=== PATIENT | female | born 1950 | race Caucasian/White ===

== ENCOUNTER 2017-12-30 13:45 | Outpatient (RCR) | payer OTHER, SELFPAY ==
--- NOTE | 2017-12-26 16:02 | PT.OTN ---
Addendum entered and electronically signed by Brook Cason, PT 12/30/17 16:50: Transition note: On December 24, 2017 our therapy services consisting of Speech, Occupational, and Physical Therapy transitioned from the [employer] electronic documentation system to a new [employer] electronic documentation system.?? All documentation prior to December 24 can be found under [employer] saved data. From December 24 forward all medical record documentation will be in [email or web address]. Original Note: Current Diagnoses Flat foot [pes planus] (acquired), left foot (12/26/17) Contracture, left ankle (12/26/17) Stiffness of left ankle, not elsewhere classified (12/26/17) Other abnormalities of gait and mobility (12/26/17) Weakness (12/26/17) Physical Therapy Treatment Note PT-OP-A Visit Information Start: 12/26/17 15:43 Freq: Status: Active Protocol: Activity Type Activity Date Activity User E-Sign Co-Sign Detail Recorded Client Recorded Date Recorded By Document 12/26/17 15:44 [facility] [id number] 12/26/17 16:01 [facility] 12/26/17 15:44 Out-Patient Physical Therapy Visit Information [Visit Information] -Visit Type Treatment Note -Visit Start Time 13:45 -Visit Stop Time 14:40 -Total Visit Minutes 55 -Visit Number 4 -Number of RENEWALS MANAGER Visits 0 [Evaluation Information] -Evaluation Date 12/04/17 PT-OP-C Subjective Start: 12/26/17 15:43 Freq: Status: Active Protocol: Activity Type Activity Date Activity User E-Sign Co-Sign Detail Recorded Client Recorded Date Recorded By Document 12/26/17 15:44 [facility] [id number] 12/26/17 16:01 [facility] 12/26/17 15:44 OP-PT Subjective [Patient Comments] -Patient Comments I'm still not too fast, but I 'm getting there. My shoulder is also still problematic, but the more I move it around, the better it feels. Pt also reports that after spending most of the past week on a boat, he foot was swollen more than normal, which seems to limit her ROM. -Patient Reported Progress Improving PT-OP-Q Treatments Start: 12/26/17 15:43 Freq: Status: Active Protocol: Activity Type Activity Date Activity User E-Sign Co-Sign Detail Recorded Client Recorded Date Recorded By Document 12/26/17 15:44 [facility] [id number] 12/26/17 16:01 [facility] 12/26/17 15:44 Gym Equipment [Shuttle Recovery] Unilateral Heel Raises -Resistance 50# -Shuttle Recovery Platform Stable -Reps/Time x20 Unilateral Squats -Resistance 50# -Shuttle Recovery Platform Stable -Reps/Time x20 Therapeutic Exercises [Sitting Exercises] 3 -Sitting Exercise Name Pulleys - GH Abduction -Side bilateral 2 -Sitting Exercise Name Pulleys - GH Flexion -Side bilateral 1 -Sitting Exercise Name BAPS ROM PF/DF, In/Ev, CW/CCW -Side left -Resistance Lv 2 -Equipment Used BAPS [Standing Exercises] 2 -Standing Exercise Name T-band Extension -Side right -Resistance Lv 2 -Reps/Minutes x15 1 -Standing Exercise Name T-band Adduction -Side right -Resistance Lv 2 -Reps/Minutes x15 Manual Therapy Treatment [Soft Tissue Mobilization] 1 -Body Location Gastrosoleus Complex -Mobilization Type Other -Body Position Sitting -Comments Manual Elongation [Joint Mobilizations] 1 -Joint Talocrural Joint -Direction Anterior/ Posterior -Grade III -Body Position Sitting -Reps/Duration 10 min PT-OP-R Modalities Start: 12/26/17 15:43 Freq: Status: Active Protocol: Activity Type Activity Date Activity User E-Sign Co-Sign Detail Recorded Client Recorded Date Recorded By Document 12/26/17 15:44 [facility] [id number] 12/26/17 16:01 [facility] 12/26/17 15:44 Electric Stimulation [Electric Stimulation] Interferential Current (IFC) -Body Location Left Ankle -Duration (Minutes) 15 -Contraction Type Normal -Cycle Continuous -Patient Position Hooklying -Combined With Heat/Cold Cold Pack -Comments Cryocuff PT-OP-T Assessment and Plan Start: 12/26/17 15:43 Freq: Status: Active Protocol: Activity Type Activity Date Activity User E-Sign Co-Sign Detail Recorded Client Recorded Date Recorded By Document 12/26/17 15:44 [facility] [id number] 12/26/17 16:01 [facility] 12/26/17 15:44 Physical Therapy Assessment [Rehab Potential] -Rehabilitation Potential Good [Impairments] -Impairments Activity Tolerance Balance Edema Functional Mobility Gait Pain ROM Soft Tissue Mobility Strength [Progress Towards Goals] -Progress Towards Goals Progressing Toward Goals [Assessment Summary] -Assessment Pt progressing slowly 4 months s/p surgical correction of L Charcot foot. Edema continues to limit ROM and strength, however she has progressed to full weight- bearing as tolerated, and currently just uses her SPC for balance support. Physical Therapy Plan [Frequency and Duration] -Frequency of Treatment 2x/Week -Plan of Care Start Date 12/16/17 -Plan of Care End Date 03/09/18 [Therapeutic Interventions] -Therapeutic Interventions Aquatic Therapy Balance Training Gait Training Home Exercise Program Joint Mobilizations Manual Therapy Neuromuscular Re-education Soft Tissue Mobilization Therapeutic Activities Therapeutic Exercises -Modalities Cold Pack/Ice Massage Electric Stimulation Hot Packs Ultrasound [Next Visit Focus/Plan] -Next Visit Plan Focus on ROM and strengthening, continued gait and balance training.
--- NOTE | 2017-12-30 14:28 | PT.OTN ---
Current Diagnoses Flat foot [pes planus] (acquired), left foot (12/30/17) Contracture, left ankle (12/30/17) Stiffness of left ankle, not elsewhere classified (12/30/17) Other abnormalities of gait and mobility (12/30/17) Weakness (12/30/17) Physical Therapy Treatment Note PT-OP-A Visit Information Start: 12/26/17 15:43 Freq: Status: Active Protocol: Activity Type Activity Date Activity User E-Sign Co-Sign Detail Recorded Client Recorded Date Recorded By Document 12/30/17 14:17 [facility] [id number] 12/30/17 14:28 [facility] 12/30/17 14:17 Out-Patient Physical Therapy Visit Information [Visit Information] -Visit Type Treatment Note -Visit Start Time 13:45 -Visit Stop Time 14:30 -Total Visit Minutes 45 -Visit Number 5 -Number of PROPERTY INVESTOR Visits 0 [Evaluation Information] -Evaluation Date 12/04/17 PT-OP-C Subjective Start: 12/26/17 15:43 Freq: Status: Active Protocol: Activity Type Activity Date Activity User E-Sign Co-Sign Detail Recorded Client Recorded Date Recorded By Document 12/30/17 14:17 [facility] [id number] 12/30/17 14:28 [facility] 12/30/17 14:17 OP-PT Subjective [Patient Comments] -Patient Comments With my $40 co -pay, I'd rather just save appointments for later if I need them, and just do most of this stuff at home. Pt also notes that her swelling seems to be worsening , and she is planning on wearing compression socks to try and help. PT-OP-K Range of Motion Start: 12/26/17 15:43 Freq: Status: Active Protocol: Activity Type Activity Date Activity User E-Sign Co-Sign Detail Recorded Client Recorded Date Recorded By Document 12/30/17 14:17 [employer] [id number] 12/30/17 14:28 [facility] 12/30/17 14:17 Ankle and Foot Goniometric Range of Motion [Ankle and Foot] Measured in Degrees Left Passive -Testing Position Sitting -Dorsiflexion with Knee Flexed 8 -Plantarflexion 40 -Inversion 10 -Eversion 12 Left Active -Testing Position Sitting -Dorsiflexion with Knee Flexed 8 -Plantarflexion 28 -Inversion 8 -Eversion 4 PT-OP-M Strength Start: 12/30/17 14:16 Freq: Status: Active Protocol: Activity Type Activity Date Activity User E-Sign Co-Sign Detail Recorded Client Recorded Date Recorded By Document 12/30/17 14:17 [facility] [id number] 12/30/17 14:28 [facility] 12/30/17 14:17 Ankle/Foot Strength [Ankle and Foot Manual Muscle Testing] Left -Dorsiflexion (L4) 4- Good- -Plantarflexion (S1) 4- Good- -Inversion 4 Good -Eversion (S1) 4 Good PT-OP-Q Treatments Start: 12/26/17 15:43 Freq: Status: Active Protocol: Activity Type Activity Date Activity User E-Sign Co-Sign Detail Recorded Client Recorded Date Recorded By Document 12/30/17 14:17 [facility] [id number] 12/30/17 14:28 [facility] 12/30/17 14:17 Gym Equipment [Shuttle Recovery] Unilateral Heel Raises -Resistance 50# -Shuttle Recovery Platform Stable -Reps/Time x20 Unilateral Squats -Resistance 50# -Shuttle Recovery Platform Stable -Reps/Time x20 Therapeutic Exercises [Sitting Exercises] 3 -Sitting Exercise Name Pulleys - GH Abduction -Side bilateral 2 -Sitting Exercise Name Pulleys - GH Flexion -Side bilateral 1 -Sitting Exercise Name BAPS ROM PF/DF, In/Ev, CW/CCW -Side left -Resistance Lv 2 -Equipment Used BAPS [Standing Exercises] 3 -Standing Exercise Name Dorsiflexion on VIET -Side bilateral -Reps/Minutes x10 Manual Therapy Treatment [Soft Tissue Mobilization] 1 -Body Location Gastrosoleus Complex -Mobilization Type Other -Body Position Sitting -Comments Manual Elongation PT-OP-R Modalities Start: 12/26/17 15:43 Freq: Status: Active Protocol: Activity Type Activity Date Activity User E-Sign Co-Sign Detail Recorded Client Recorded Date Recorded By Document 12/30/17 14:17 [facility] [id number] 12/30/17 14:28 [facility] 12/30/17 14:17 Electric Stimulation [Electric Stimulation] Interferential Current (IFC) -Body Location Left Ankle -Duration (Minutes) 15 -Contraction Type Normal -Cycle Continuous -Patient Position Hooklying -Combined With Heat/Cold Cold Pack -Comments Cryocuff PT-OP-T Assessment and Plan Start: 12/26/17 15:43 Freq: Status: Active Protocol: Activity Type Activity Date Activity User E-Sign Co-Sign Detail Recorded Client Recorded Date Recorded By Document 12/30/17 14:17 [facility] [id number] 12/30/17 14:28 [facility] 12/30/17 14:17 Physical Therapy Assessment [Rehab Potential] -Rehabilitation Potential Good [Impairments] -Impairments Activity Tolerance Balance Edema Functional Mobility Gait Pain ROM Soft Tissue Mobility Strength [Progress Towards Goals] -Progress Towards Goals Progressing Toward Goals [Assessment Summary] -Assessment Pt requesting discharge at this time due to her high co- pay and 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 Pt informed that she will require a new referral in order to return . Physical Therapy Plan [Frequency and Duration] -Frequency of Treatment 2x/Week -Plan of Care Start Date 12/16/17 -Plan of Care End Date 03/09/18 [Therapeutic Interventions] -Therapeutic Interventions Aquatic Therapy Balance Training Gait Training Home Exercise Program Joint Mobilizations Manual Therapy Neuromuscular Re-education Soft Tissue Mobilization Therapeutic Activities Therapeutic Exercises -Modalities Cold Pack/Ice Massage Electric Stimulation Hot Packs Ultrasound [Discharge Physical Therapy] -Discharge Reasons Patient Request -Discharge Comments Pt continued to display edema, decreased ROM, and weakness following surgical repair of L Charcot foot. Pt would likely benefit from continued therapy, however she feels discharge would be best at this time. [Next Visit Focus/Plan] -Next Visit Plan Discharge from skilled PT
== END 2018-01-14 13:15 ==
LOC: PHYS 13:45
PROVIDERS: Family Provider Internal Medicine; PCP Internal Medicine; Visit Provider Orthopaedic Surgery Foot and Ankle Surgery
DX: M21.42 Flat foot [pes planus] (acquired), left foot (principal); R26.89 Other abnormalities of gait and mobility; R53.1 Weakness; M25.672 Stiffness of left ankle, not elsewhere classified; M24.572 Contracture, left ankle
CPT/HCPCS: 97014; 97110; 97140; G0283

== ENCOUNTER → 2018-07-15 10:15 | Outpatient (CLI) | payer OTHER, SELFPAY ==
[2018-07-15 10:44] LABS: Add Manual Diff / Slide Review NO; Basophils Percent Auto 0.5 % (0-2); Eosinophils Percent Auto 1.1 % (2-4); Hematocrit 47.2 % (36-46); Hemoglobin 15.7 g/dL (12.0-16.0); Lymphocytes Percent Auto 17.1 % (25-40); Mean Corpuscular HGB Conc 33.2 % (30-36); Mean Corpuscular Hemoglobin 31.1 PG (26-34); Mean Corpuscular Volume 93.5 fL (80-100); Monocytes Percent Auto 7.3 % (3-14); Neutrophils Absolute Auto 4900 /uL (3000-5900); Platelet Count 259 X10^3/uL (150-400); Red Blood Cell Count 5.05 X10^6/uL (4.0-5.2); Red Cell Distribution Width 14.2 % (11.6-14.8); White Blood Cell Count 6.7 X10^3/uL (4.5-11.0)
[2018-07-15 11:00] LABS: Carbon Dioxide 29 mmol/L (22-32); Chloride 99 mmol/L (98-107); HEMOLYSIS 19 (0-50); Sodium 141 mmol/L (137-145)
== END ==
PROVIDERS: PCP Physician Assistant; Visit Provider Podiatrist
DX: Z01.818 Encounter for other preprocedural examination (principal); Z01.812 Encounter for preprocedural laboratory examination
CPT/HCPCS: 36415; 80051; 85025; 93005

== ENCOUNTER → 2019-07-17 11:45 | Outpatient (CLI) | payer MEDICARE, SELFPAY ==
--- NOTE | 2019-07-17 11:48 | DI.RAD.S_ITS ---
PROCEDURE: XR FOREARM RT 2V INDICATIONS: r/o fracture TECHNIQUE: 2 views of the forearm were acquired. COMPARISON: None. FINDINGS: Bones: There is subtle irregularity and sclerosis involving the distal radial shaft suggestive of a nondisplaced distal radial fracture. Moderate osteophytic changes along radial aspect of left wrist are seen. No dislocation. Soft tissues: No suspicious soft tissue calcifications or masses. IMPRESSION: Finding is consistent with a subtle nondisplaced transverse fracture through distal radius. Wrist joint osteoarthritis. Dictated by: Jarod Mejias M.D. on 07/17/2019 at 12:06 Approved by: Jarod Mejias M.D. on 07/17/2019 at 12:12
--- NOTE | 2019-07-17 11:48 | DI.RAD.S_ITS ---
PROCEDURE: XR WRIST LT MIN 3V INDICATIONS: r/o fracture TECHNIQUE: 3 views of the wrist were acquired. COMPARISON: None. FINDINGS: Bones: Minimally impacted distal radial fracture is seen. Osteoarthritic changes are noted along radial aspect of left wrist. No suspicious bony lesions. Scaphoid view: Scaphoid is grossly intact. Soft tissues: No suspicious soft tissue calcifications. IMPRESSION: Minimally impacted distal radial fracture. 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 Dictated by: Jarod Mejias M.D. on 07/17/2019 at 12:12 Approved by: Jarod Mejias M.D. on 07/17/2019 at 12:19
== END ==
PROVIDERS: Family Provider Internal Medicine; PCP Physician Assistant; Visit Provider Physician Assistant
DX: S69.92XA Unspecified injury of left wrist, hand and finger(s), initial encounter (principal); M19.031 Primary osteoarthritis, right wrist; M18.11 Unilateral primary osteoarthritis of first carpometacarpal joint, right hand; X58.XXXA Exposure to other specified factors, initial encounter
CPT/HCPCS: 73090; 73110

== ENCOUNTER → 2019-09-24 18:35 | Outpatient (ROUT) | payer MEDICARE, SELFPAY ==
[2019-09-24 18:43] LABS: Add Manual Diff / Slide Review NO; Basophils Absolute Auto 100 /uL (0-100); Basophils Percent Auto 0.8 % (0-2); Eosinophils Absolute Auto 100 /uL (0-450); Eosinophils Percent Auto 1.8 % (2-4); Hemoglobin 15.3 g/dL (12.0-16.0); Lymphocytes Absolute Auto 1300 /uL (1100-4500); Lymphocytes Percent Auto 20.6 % (25-40); Mean Corpuscular HGB Conc 33.4 % (30-36); Mean Corpuscular Hemoglobin 31.3 PG (26-34); Mean Corpuscular Volume 93.8 fL (80-100); Monocytes Absolute Auto 500 /uL (0-900); Monocytes Percent Auto 8.3 % (3-14); Neutrophils Absolute Auto 4400 /uL (1500-7000); Neutrophils Percent Auto 68.5 % (50-75); Platelet Count 238 X10^3/uL (150-400); White Blood Cell Count 6.4 X10^3/uL (4.5-11.0)
[2019-09-24 19:01] LABS: Alanine Aminotransferase 26 IU/L (<35); Albumin Globulin Ratio 1.1 (1.0-2.8); Alkaline Phosphatase 80 U/L (38-126); Aspartate Aminotransferase 32 IU/L (14-36); BUN Creatinine Ratio 19.2 (6-22); Bilirubin Total 0.6 mg/dL (0.2-1.3); Blood Urea Nitrogen 23 mg/dL (7-17); Calcium 9.5 mg/dL (8.4-10.2); Carbon Dioxide 30 mmol/L (22-32); Chloride 100 mmol/L (98-107); Cholesterol 208 mg/dL (140-199); Estimated Glomerular Filt Rate 44.8 mL/min (>60); Globulin 3.5 g/dL (1.7-4.1); Glucose 111 mg/dL (80-110); HDL Cholesterol 61 mg/dL (40-60); HEMOLYSIS 20 (0-50); LDL Cholesterol Calculated 100 mg/dL (<100); Magnesium 1.8 mg/dL (1.6-2.3); Potassium 4.8 mmol/L (3.4-5.1); Sodium 137 mmol/L (137-145); Total Protein 7.5 g/dL (6.3-8.2); Triglycerides 233 mg/dL (35-150)
[2019-09-24 19:30] LABS: TSH w/ Reflex to FT4 2.36 uIU/mL (0.47-4.68)
== END ==
PROVIDERS: Family Provider Internal Medicine; PCP Physician Assistant; Visit Provider Physician Assistant
DX: M10.9 Gout, unspecified (principal); I10 Essential (primary) hypertension; E03.9 Hypothyroidism, unspecified; E78.2 Mixed hyperlipidemia
CPT/HCPCS: 80053; 80061; 83735; 84443; 85025

== ENCOUNTER → 2020-11-17 18:26 | Outpatient (ROUT) | payer OTHER, SELFPAY ==
[2020-11-17 18:44] LABS: Add Manual Diff / Slide Review NO; Alanine Aminotransferase 25 IU/L (<35); Albumin 3.9 g/dL (3.5-5.0); Albumin Globulin Ratio 1.1 (1.0-2.8); Alkaline Phosphatase 77 U/L (38-126); Aspartate Aminotransferase 33 IU/L (14-36); BUN Creatinine Ratio 13.6 (6-22); Basophils Absolute Auto 100 /uL (0-100); Basophils Percent Auto 0.7 % (0-2); Bilirubin Total 0.6 mg/dL (0.2-1.3); Blood Urea Nitrogen 17 mg/dL (7-17); Calcium 9.5 mg/dL (8.4-10.2); Carbon Dioxide 23 mmol/L (22-32); Chloride 104 mmol/L (98-107); Cholesterol 170 mg/dL (140-199); Eosinophils Absolute Auto 200 /uL (0-450); Eosinophils Percent Auto 2.1 % (2-4); Estimated Glomerular Filt Rate 42.6 mL/min (>60); Globulin 3.7 g/dL (1.7-4.1); Glucose 97 mg/dL (80-110); HDL Cholesterol 56 mg/dL (40-60); Hematocrit 47.9 % (36-46); Hemoglobin 15.7 g/dL (12.0-16.0); LDL Cholesterol Calculated 78 mg/dL (<100); Lymphocytes Absolute Auto 1800 /uL (1100-4500); Lymphocytes Percent Auto 24.6 % (25-40); Magnesium 1.7 mg/dL (1.6-2.3); Mean Corpuscular HGB Conc 32.8 % (30-36); Mean Corpuscular Hemoglobin 30.9 PG (26-34); Mean Corpuscular Volume 94.4 fL (80-100); Monocytes Absolute Auto 700 /uL (0-900); Monocytes Percent Auto 9.3 % (3-14); Neutrophils Absolute Auto 4600 /uL (1500-7000); Neutrophils Percent Auto 63.3 % (50-75); Platelet Count 248 X10^3/uL (150-400); Red Blood Cell Count 5.07 X10^6/uL (4.0-5.2); Red Cell Distribution Width 14.9 % (11.6-14.8); Sodium 136 mmol/L (137-145); Total Protein 7.6 g/dL (6.3-8.2); Triglycerides 182 mg/dL (35-150); Uric Acid 8.6 mg/dL (2.5-6.2); White Blood Cell Count 7.3 X10^3/uL (4.5-11.0)
[2020-11-17 19:05] LABS: HEMOLYSIS 51 (0-50)
[2020-11-17 19:13] LABS: TSH w/ Reflex to FT4 3.16 uIU/mL (0.47-4.68)
== END ==
PROVIDERS: Family Provider Internal Medicine; PCP Physician Assistant; Visit Provider Physician Assistant
DX: M10.9 Gout, unspecified (principal); I10 Essential (primary) hypertension; E78.2 Mixed hyperlipidemia; E03.9 Hypothyroidism, unspecified
CPT/HCPCS: 80053; 80061; 83735; 84443; 84550; 85025

== ENCOUNTER → 2021-09-22 08:26 | Outpatient (CLI) | payer OTHER, SELFPAY ==
--- NOTE | 2021-09-22 | DI.RAD.S_ITS ---
PROCEDURE: XR CHEST 2V INDICATIONS: SHORTNESS OF BREATH TECHNIQUE: 2 views of the chest were acquired. COMPARISON: None. FINDINGS: Surgical changes and devices: None. Lungs and pleura: Abnormal mixed interstitial and airspace opacity in the right lung with a masslike appearance of the right hilum.. There also appears to be some right pleural thickening apically. There mildly increased interstitial markings in the left lung. No visible pleural effusion or findings of pneumothorax. Mediastinum: Mediastinal contours are normal. Heart size is normal. Bones and chest wall: No suspicious bony abnormalities. Soft tissues appear unremarkable. IMPRESSION: Abnormal airspace and interstitial opacities in the right lung with suspected pleural thickening and right hilar mass. CT chest with IV contrast is recommended. Dictated by: Sam Carlson M.D. on 09/22/2021 at 9:56 Approved by: Sam Carlson M.D. on 09/22/2021 at 9:57
--- NOTE | 2021-09-22 08:42 | DI.ECHO.S_ITS ---
:Name: DELILAH DIMAS Study Date: 09/22/2021 Height: 69 in : :[facility] ReadingLocation: Weight: 270 lb : : Gender: Female BSA: 2.3 m2 : :: 1950 Age: 71 yrs BP: 166/120 mmHg: :Reason For Study: HERRERA : :Ordering Physician: Dr. Simmons : :Aidan Performed By: Rubio Levin : :Referring: AMARIS ZARAGOZA : + + Interpretation Summary The study quality was technically difficult. The left ventricle is normal in size and wall thickness. The ejection fraction is estimated to be 50-55%. The right ventricle is moderately dilated. Right ventricular systolic function is mildly to moderately reduced. Paradoxical septal motion is consistent with right ventricular volume overload. The right ventricular systolic pressure is estimated to be at least 62 mmHg based on an estimated right atrial pressure of 8 mm Hg. suggesting severe pulmonary hypertension. Ascending aorta mildly dilated at 4.1 cm. No prior studies available for comparison. Procedure: A two-dimensional transthoracic echocardiogram with color flow and Doppler was performed. The study quality was technically difficult. The apical views were difficult to obtain and are suboptimal in quality. There is no prior echocardiogram noted for this patient. The heart rate ranged between 94 - 105 bpm during the study. Left Ventricle: The left ventricle is normal in size and wall thickness. Significant beat - to - beat variation of EF but appears grossly normal / low normal. The ejection fraction is estimated to be 50-55%. Paradoxical septal motion is consistent with right ventricular volume overload. Diastolic function could not be accurately assessed due to unobtainable data. Right Ventricle: A moderator band is seen in the right ventricle. The right ventricle is moderately dilated. Right ventricular systolic function is mildly reduced. Atria: The left atrial size is normal. The right atrium is severely dilated. There is no Doppler evidence for an interatrial shunt. Mitral Valve: The mitral valve is normal. There is trace mitral regurgitation. Aortic Valve: The aortic valve is trileaflet. The aortic valve opens well. There is trace aortic regurgitation. Tricuspid Valve: The tricuspid valve is normal. There is moderate tricuspid regurgitation. The right ventricular systolic pressure is estimated to be at least 62 mmHg based on an estimated right atrial pressure of 8 mm Hg. Pulmonic Valve: The pulmonic valve leaflets are thin and pliable; valve motion is normal. There is trace pulmonic regurgitation. Great Vessels: Aortic root mildly dilated at 3.9 cm. Ascending aorta mildly dilated at 4.1 cm. The aortic arch is normal in size. The IVC is dilated (diameter is greater than 2.1 cm) yet it collapses greater than 50% with a sniff. This suggests a right atrial pressure of 8 mm Hg. Pericardium/ Pleura There is no pericardial effusion. There is an anterior echo-free space consistent with a fat pad. There is no pleural effusion. MMode/2D Measurements & Calculations LVIDd: 3.7 cm LVOT diam: 2.4 cm LVIDs: 1.7 cm Ao root diam: 3.9 cm FS: 53.5 % asc Aorta Diam: 4.1 cm IVSd: 0.95 cm Ao Arch Diam (distal): 3.1 cm LVPWd: 1.1 cm LV christine. diameter/BSA (cm/m^2): 1.6 LV sys. diameter/BSA (cm/m^2): 0.73 LA A2 area: 24.0 cm2 RA long axis: 7.2 cm LA A4 area: 21.5 cm2 RA area: 33.9 cm2 LA length (vol): 7.6 cm RA vol: 135.8 ml LA vol: 57.3 ml RA : 57.9 ml/m2 LA vol index: 24.4 ml/m2 IVC diam: 2.2 cm TAPSE: 1.6 cm Doppler Measurements & Calculations Ao V2 max: 115.5 cm/sec LVOT Max Charly: 118.5 cm/sec Ao V2 mean: 84.7 cm/sec LV V1 max P.7 mmHg Ao max P.5 mmHg LV V1 VTI: 19.1 cm Ao mean P.1 mmHg DAQUAN(I,D): 4.7 cm2 Ao V2 VTI: 18.8 cm DAQUAN(V,D): 4.7 cm2 sev ratio: 1.0 DAQUAN indexed to BSA (cm^2/m^2): 2.0 TR max charly: 341.0 cm/sec SV(LVOT): 87.9 ml TR max P.9 mmHg Reading Physician:RENNY
== END ==
PROVIDERS: Family Provider Internal Medicine; PCP Physician Assistant; Referring Provider Internal Medicine; Visit Provider Internal Medicine
DX: I07.1 Rheumatic tricuspid insufficiency (principal); I77.810 Thoracic aortic ectasia; R06.02 Shortness of breath
CPT/HCPCS: 71046; 93306

== ENCOUNTER 2021-09-25 11:35 | Inpatient (IN) | payer OTHER, SELFPAY ==
[2021-09-25] VITALS (56 sets, daily range): BP systolic 116–157; BP diastolic 65–110; PULSE 72–109; RESP 22–78; TEMP 36.2–36.6; O2SAT 88–99; BMI 34.9
--- NOTE | 2021-09-25 12:03 | ED_ITS ---
HPI - General Adult General Chief complaint: Shortness of Breath/Dyspnea Stated complaint: CHF/Hypoxia/Not Eating or Drinking/Trouble Walking Time Seen by Provider: 09/25/21 12:03 Source: patient and family Mode of arrival: Wheelchair History of Present Illness HPI narrative: 71-year-old woman with a history of congestive heart failure recently diagnosed on vaccinated against COVID presents with severe dyspnea, tachypnea, 3 days of lethargy, no appetite minimal p.o. intake, mild cough denies fevers denies headache taste or smell changes. feels that she is confused. She denies chest pain or palpitations. Related Data Home Medications Medication Instructions Recorded Confirmed furosemide 40 mg tablet 40 mg PO DAILY 09/25/21 09/25/21 gabapentin 600 mg tablet 600 mg PO TID 09/25/21 09/25/21 levothyroxine 100 mcg tablet 100 mcg PO DAILY 09/25/21 09/25/21 losartan 100 mg tablet 100 mg PO DAILY 09/25/21 09/25/21 potassium chloride 20 mEq 20 meq PO DAILY 09/25/21 09/25/21 tablet,extended release(part/cryst) sertraline 50 mg tablet 100 mg PO DAILY 09/25/21 09/25/21 tramadol 50 mg tablet 50 mg PO QID PRN 09/25/21 09/25/21 Allergies Allergy/AdvReac Type Severity Reaction Status Date / Time No Known Drug Allergies Allergy Unverified 07/17/19 12:53 Review of Systems Review of Systems Narrative: Remainder of complete review of systems is otherwise unremarkable except for that included in the HPI. Patient History Medical History (Updated 09/25/21 @ 15:47 by Carlie Forrest MD) CHF (congestive heart failure), NYHA class I Social History household members: spouse Smoking Status: Never smoker alcohol intake: never Smoking Status: Never smoker alcohol intake frequency: 0-2 drinks per day Substance Use Type: does not use Exam Initial Vital Signs Initial Vital Signs: Vital Signs Temperature 97.2 F L 09/25/21 11:53 Pulse Rate 106 H 09/25/21 11:53 Respiratory Rate 24 09/25/21 11:53 Blood Pressure 137/79 09/25/21 11:53 Pulse Oximetry 88 L 09/25/21 11:53 General: Acutely ill appearing, weak, mildly confused, very dry mucous membranes, tachypnea, tachycardic with significant exertional worsening HEENT: Very dry mucous membranes, normal sclera with reactive pupils, Neck: No JVD, supple Respiratory: Lungs with mild bibasilar crackles but no wheeze Full and symmetrical air movement Cardiac: Tachycardic but otherwise Regular rate and rhythm no murmurs no bruits Abdomen: Soft, nontender, good bowel tones, no flank pain Skin: Pale but good capillary refill Neurologic: Confused but able to move all extremities Extremities: No trauma, chronic venous stasis changes, 1+ lower extremity edema which she says is better than her baseline Psych: Cooperative, confused and somewhat slowed overall Course Orders Ordered: ED Orders 09/25/21 12:10 COVID19 -Nasal swab/Pre-Proc Stat 09/25/21 12:11 XR chest 1V Stat EKG-12 Lead Stat 09/25/21 12:24 ABG [Arterial Blood Gas] Stat 09/25/21 12:35 Complete Blood Count AUTO DIFF Stat D Dimer Stat Lactate (Lactic Acid) Stat Magnesium Stat NT-proBNP (BNP-Adult 18+) Stat Procalcitonin Stat Troponin I Stat 09/25/21 13:11 CT angio chest PE protocol Stat 09/25/21 13:50 Comprehensive Metabolic Panel Stat Partial Thromboplastin Time Stat 09/25/21 15:30 Partial Thromboplastin Time DAILY 09/25/21 21:30 PTT [Partial Thromboplastin Time] Q6H 09/26/21 03:30 PTT [Partial Thromboplastin Time] Q6H 09/26/21 05:00 Hemoglobin and Hematocrit DAILY 09/26/21 09:30 PTT [Partial Thromboplastin Time] Q6H 09/26/21 15:30 PTT [Partial Thromboplastin Time] Q6H Partial Thromboplastin Time DAILY 09/27/21 15:30 Partial Thromboplastin Time DAILY 09/28/21 15:30 Partial Thromboplastin Time DAILY 09/29/21 15:30 Partial Thromboplastin Time DAILY 09/30/21 15:30 Partial Thromboplastin Time DAILY 10/01/21 15:30 Partial Thromboplastin Time DAILY Acetaminophen (Acetaminophen 325 Mg Tablet) 650 mg PO Q6HR PRN PRN Reason: Fever/Mild Pain (1-3) Albuterol (Albuterol Hfa Mdi 60 Puff/8 Gm Inhaler) 2 puff INH RTQ4HR PRN PRN Reason: Shortness Of Breath Dexamethasone (Dexamethasone 10 Mg/Ml Vial) 6 mg IV DAILY [facility] Gabapentin (Gabapentin 600 Mg Tablet) 600 mg PO TID [facility] Last Admin: 09/25/21 18:02 Dose: 600 mg Documented by: TAYA Heparin Sodium/Dextrose (Heparin Drip) 25,000 unit in 500 mls @ 24 mls/hr IV CONT YOU; Protocol Last Admin: 09/25/21 15:36 Dose: 1,200 units/hr, 24 mls/hr Documented by: LIU Levothyroxine Sodium (Levothyroxine 100 Mcg Tablet) 100 mcg PO 0600 YOU Losartan Potassium (Losartan 50 Mg Tablet) 100 mg PO DAILY [facility] Ondansetron HCl (Ondansetron 4 Mg/2 Ml Inj) 4 mg IV Q8HR PRN PRN Reason: Nausea And Vomiting Sertraline HCl (Sertraline 50 Mg Tablet) 100 mg PO DAILY [facility] Tramadol HCl (Tramadol 50 Mg Tablet) 50 mg PO QID PRN PRN Reason: Pain (Scale Score 4-6) Discontinued Medications Dexamethasone (Dexamethasone 10 Mg/Ml Vial) 10 mg IV NOW ONE Stop: 09/25/21 17:09 Last Admin: 09/25/21 18:02 Dose: 10 mg Documented by: TAYA Heparin Sodium (Porcine) (Heparin 5,000 Unit/Ml Vial) 7,500 unit IV NOW ONE Stop: 09/25/21 15:24 Last Admin: 09/25/21 15:35 Dose: 7,500 unit Documented by: LIU Vital Signs Vital signs: Vital Signs - 8 hr 09/25/21 11:53 09/25/21 12:05 09/25/21 12:06 Temperature 97.2 F L Pulse Rate 106 H 109 H Respiratory Rate 24 Blood Pressure 137/79 140/105 H Pulse Oximetry 88 L 89 L 09/25/21 12:10 09/25/21 12:15 09/25/21 12:16 Temperature Pulse Rate 105 H 101 H 101 H Respiratory Rate 78 H 58 H 66 H Blood Pressure 119/83 137/81 Pulse Oximetry 98 96 97 09/25/21 12:30 09/25/21 12:32 09/25/21 12:45 Temperature Pulse Rate 102 H 101 H 101 H Respiratory Rate 66 H 65 H 39 H Blood Pressure 135/82 Pulse Oximetry 96 96 97 09/25/21 12:46 09/25/21 13:00 09/25/21 13:15 Temperature Pulse Rate 101 H 95 H 98 H Respiratory Rate 67 H 40 H 59 H Blood Pressure 143/92 H Pulse Oximetry 97 96 98 09/25/21 13:16 09/25/21 13:30 09/25/21 13:31 Temperature Pulse Rate 99 H 96 H 100 H Respiratory Rate 49 H 61 H 56 H Blood Pressure 116/85 129/65 Pulse Oximetry 97 96 97 09/25/21 13:45 09/25/21 14:00 09/25/21 14:15 Temperature Pulse Rate 100 H 101 H 99 H Respiratory Rate 46 H 43 H 42 H Blood Pressure 135/76 128/81 142/93 H Pulse Oximetry 96 96 95 09/25/21 14:30 09/25/21 14:45 09/25/21 15:00 Temperature Pulse Rate 97 H 93 H 93 H Respiratory Rate 48 H 23 54 H Blood Pressure 132/89 Pulse Oximetry 95 97 97 09/25/21 15:15 09/25/21 15:30 09/25/21 15:32 Temperature Pulse Rate 91 H 87 95 H Respiratory Rate 22 38 H 63 H Blood Pressure 128/91 H Pulse Oximetry 97 98 99 09/25/21 15:45 Temperature Pulse Rate 96 H Respiratory Rate 28 H Blood Pressure 128/91 H Pulse Oximetry 97 Medical Decision Making Lab Data Result diagrams: 09/25/21 12:35 09/25/21 13:50 Labs: Lab Results 09/25/21 09/25/21 09/25/21 Range/Units 12:10 12:24 12:35 WBC 5.3 (4.5-11.0) X10^3/uL RBC 6.45 H (4.0-5.2) X10^6/uL Hgb 17.6 H (12.0-16.0) g/dL Hct 54.4 H (36-46) % MCV 84.4 (80-100) fL MCH 27.2 (26-34) PG MCHC 32.2 (30-36) % RDW 16.9 H (11.6-14.8) % Plt Count 161 (150-400) X10^3/uL Neut % (Auto) 72.5 (50-75) % Lymph % (Auto) 14.9 L (25-40) % [place] % (Auto) 12.2 (3-14) % Eos % (Auto) 0.0 L (2-4) % Baso % (Auto) 0.4 (0-2) % Neut # (Auto) 3900 (7939-8178) /uL Lymph # (Auto) 800 L (7874-5071) /uL [place] # (Auto) 600 (0-900) /uL Eos # (Auto) 0 (0-450) /uL Baso # (Auto) 0 (0-100) /uL APTT (26.4-36.2) SECONDS D-Dimer (<230) ng/mL ABG pH 7.45 (7.35-7.45) ABG pCO2 41.2 (35-45) mmHg ABG pO2 92 (80-100) mmHg ABG HCO3 29 H (22-26) mmol/L ABG Total CO2 30 (21-31) mmol/L ABG O2 Saturation 97 (95-100) % ABG Base Excess 5.0 H (-2-2) mmol/L FiO2 36 Sodium (137-145) mmol/L Potassium (3.4-5.1) mmol/L Chloride (98-107) mmol/L Carbon Dioxide (22-32) mmol/L BUN (7-17) mg/dL Creatinine (0.52-1.04) mg/dL Estimated GFR (>60) mL/min BUN/Creatinine Ratio (6-22) Glucose (80-110) mg/dL Lactate (0.7-2.1) mmol/L Calcium (8.4-10.2) mg/dL Magnesium (1.6-2.3) mg/dL Total Bilirubin (0.2-1.3) mg/dL AST (14-36) IU/L ALT (<35) IU/L Alkaline Phosphatase (38-126) U/L Troponin I (0.01-0.034) ng/mL NT-Pro-B Natriuret Pep (<125) pg/mL Total Protein (6.3-8.2) g/dL Albumin (3.5-5.0) g/dL Globulin (1.7-4.1) g/dL Albumin/Globulin Ratio (1.0-2.8) Procalcitonin (<0.5) ng/mL SARS-CoV-2 (PCR) Positive H (Negative) 09/25/21 09/25/21 09/25/21 Range/Units 12:35 12:35 12:35 WBC (4.5-11.0) X10^3/uL RBC (4.0-5.2) X10^6/uL Hgb (12.0-16.0) g/dL Hct (36-46) % MCV (80-100) fL MCH (26-34) PG MCHC (30-36) % RDW (11.6-14.8) % Plt Count (150-400) X10^3/uL Neut % (Auto) (50-75) % Lymph % (Auto) (25-40) % [place] % (Auto) (3-14) % Eos % (Auto) (2-4) % Baso % (Auto) (0-2) % Neut # (Auto) (4064-3289) /uL Lymph # (Auto) (1825-1886) /uL [place] # (Auto) (0-900) /uL Eos # (Auto) (0-450) /uL Baso # (Auto) (0-100) /uL APTT (26.4-36.2) SECONDS D-Dimer 5240 H (<230) ng/mL ABG pH (7.35-7.45) ABG pCO2 (35-45) mmHg ABG pO2 (80-100) mmHg ABG HCO3 (22-26) mmol/L ABG Total CO2 (21-31) mmol/L ABG O2 Saturation (95-100) % ABG Base Excess (-2-2) mmol/L FiO2 Sodium (137-145) mmol/L Potassium (3.4-5.1) mmol/L Chloride (98-107) mmol/L Carbon Dioxide (22-32) mmol/L BUN (7-17) mg/dL Creatinine (0.52-1.04) mg/dL Estimated GFR (>60) mL/min BUN/Creatinine Ratio (6-22) Glucose (80-110) mg/dL Lactate 1.7 (0.7-2.1) mmol/L Calcium (8.4-10.2) mg/dL Magnesium 1.6 (1.6-2.3) mg/dL Total Bilirubin (0.2-1.3) mg/dL AST (14-36) IU/L ALT (<35) IU/L Alkaline Phosphatase (38-126) U/L Troponin I 0.031 (0.01-0.034) ng/mL NT-Pro-B Natriuret Pep 07415 H (<125) pg/mL Total Protein (6.3-8.2) g/dL Albumin (3.5-5.0) g/dL Globulin (1.7-4.1) g/dL Albumin/Globulin Ratio (1.0-2.8) Procalcitonin 0.24 (<0.5) ng/mL SARS-CoV-2 (PCR) (Negative) 09/25/21 09/25/21 09/25/21 Range/Units 13:50 13:50 15:30 WBC (4.5-11.0) X10^3/uL RBC (4.0-5.2) X10^6/uL Hgb (12.0-16.0) g/dL Hct (36-46) % MCV (80-100) fL MCH (26-34) PG MCHC (30-36) % RDW (11.6-14.8) % Plt Count (150-400) X10^3/uL Neut % (Auto) (50-75) % Lymph % (Auto) (25-40) % [place] % (Auto) (3-14) % Eos % (Auto) (2-4) % Baso % (Auto) (0-2) % Neut # (Auto) (0507-3668) /uL Lymph # (Auto) (8675-7040) /uL [place] # (Auto) (0-900) /uL Eos # (Auto) (0-450) /uL Baso # (Auto) (0-100) /uL APTT 29 26 L (26.4-36.2) SECONDS D-Dimer (<230) ng/mL ABG pH (7.35-7.45) ABG pCO2 (35-45) mmHg ABG pO2 (80-100) mmHg ABG HCO3 (22-26) mmol/L ABG Total CO2 (21-31) mmol/L ABG O2 Saturation (95-100) % ABG Base Excess (-2-2) mmol/L FiO2 Sodium 136 L (137-145) mmol/L Potassium 4.3 (3.4-5.1) mmol/L Chloride 102 (98-107) mmol/L Carbon Dioxide 26 (22-32) mmol/L BUN 33 H (7-17) mg/dL Creatinine 1.26 H (0.52-1.04) mg/dL Estimated GFR 42.1 L (>60) mL/min BUN/Creatinine Ratio 26.2 H (6-22) Glucose 119 H (80-110) mg/dL Lactate (0.7-2.1) mmol/L Calcium 9.4 (8.4-10.2) mg/dL Magnesium (1.6-2.3) mg/dL Total Bilirubin 1.1 (0.2-1.3) mg/dL AST 33 (14-36) IU/L ALT 20 (<35) IU/L Alkaline Phosphatase 77 (38-126) U/L Troponin I (0.01-0.034) ng/mL NT-Pro-B Natriuret Pep (<125) pg/mL Total Protein 8.4 H (6.3-8.2) g/dL Albumin 4.0 (3.5-5.0) g/dL Globulin 4.4 H (1.7-4.1) g/dL Albumin/Globulin Ratio 0.9 L (1.0-2.8) Procalcitonin (<0.5) ng/mL SARS-CoV-2 (PCR) (Negative) Imaging Data CT scan - chest: My Impression: FINDINGS:? Image quality:? Excellent.? ? Pulmonary arteries:? Pulmonary arteries are prominent in size and measures up to 4.1 cm in diameter concerning for pulmonary vascular hypertension.? Intraluminal filling defects are seen involving segmental and subsegmental branches of left upper and lower lobe pulmonary arteries and subsegmental branches of right lower lobe pulmonary artery.? Finding is consistent with fairly extensive bilateral pulmonary emboli. ? Lungs and pleura:? There is prominent reticular nodular thickening in periphery of bilateral lung [place] suggestive of early interstitial pulmonary fibrosis.? Patchy hazy ground-glass opacities are seen scattered in bilateral lung [place] suggestive of area of pulmonary edema versus pneumonitis.? Trace? right pleural effusion is seen.? No pneumothorax.? Central and peripheral airways are patent. ? Mediastinum:? Heart size is markedly enlarged, without pericardial effusion.? Prominent mediastinal and hilar lymph nodes are seen measures up to 1.3 cm in short axis diameter in right paratracheal space.? Ascending thoracic aortic aneurysm measures up to 4.4 cm in largest AP diameter is noted.? Esophagus is normal in caliber, with a small hiatal hernia.? ? Bones and chest wall:? No suspicious bony lesions.? Subacute appearing fractures involving right lateral 2nd through 6th ribs are seen.? No acute vertebral body compression fracture.? hyroid gland is within normal limits.? No axillary or supraclavicular adenopathy.? ? Abdomen:? Visualized upper abdominal solid organs appear normal in the early arterial phase of enhancement.? ? IMPRESSION:? 1. Pulmonary emboli within segmental and subsegmental branches of left upper and lower lobe pulmonary arteries and subsegmental branches of right lower lobe pulmonary artery. 2. Enlarged pulmonary artery size concerning for pulmonary vascular hype rtension. 3.? Ascending thoracic aortic aneurysm measures up to 4.4 cm in largest AP diameter.? Cardiomegaly, no pericardial effusion. 4.? Reticular nodular thickening in periphery of bilateral lung [place] concerning for early interstitial pulmonary fibrosis.? Hazy ground-glass opacities scattered in bilateral lung [place] suggestive of pulmonary edema versus pneumonitis.? Trace right pleural effusion.? No pneumothorax.? Airway is patent. 5. Nonspecific enlarged mediastinal and hilar lymph nodes suggestive of reactive inflammatory nodes.? ? ? Dictated by: Jarod Mejias M.D. on 09/25/2021 at 15:10? ?? ECG Data Interpretation: Sinus tach at a rate of 104 Right bundle branch block Lateral T-wave inversion MDM Narrative Medical decision making narrative: 71-year-old woman with history of hypertension, hypothyroidism, peripheral neuropathy, congestive heart failure, unvaccinated for COVID presents with 3 days of lethargy, decreased eating and drinking, mild cough with room air saturations at 88%. Her notes that she has been somewhat more confused and isn't sure that she has been taking all of her medications as prescribed in the last 48 hours. She is found have a large pulmonary embolism multiple lobes, heparin is started. Will likely also benefit from dexamethasone and remdesivir to treat her COVID pneumonia. She is admitted to the hospitalist service for further treatment. 345 reviewed care with hospitalist service Discharge Plan Departure Patient Disposition: Admitted As Inpatient Clinical Impression: COVID-19, CHF (congestive heart failure), Pulmonary embolism Admit Date/Time: 09/25/21 15:46 Admit Provider: Curly Hough
--- NOTE | 2021-09-25 12:11 | DI.RAD.S_ITS ---
PROCEDURE: XR CHEST 1V INDICATIONS: Dyspnea TECHNIQUE: One view of the chest was acquired. COMPARISON: [facility], CR, XR CHEST 2V, 09/22/2021, 9:20. FINDINGS: Surgical changes and devices: None. Lungs and pleura: Increased interstitial markings have improved when compared with prior study, but not entirely resolved. There is patchy airspace opacity in right upper lobe along with mild pleural thickening. No pleural effusions or pneumothorax. Mediastinum: Right hilar fullness. Mediastinal contours otherwise normal. Cardiomegaly as seen on prior study. Bones and chest wall: No suspicious bony lesions. Overlying soft tissues appear unremarkable. IMPRESSION: Cardiomegaly with improved but not entirely resolved increased interstitial markings in both lungs. Findings are suggestive of cardiogenic pulmonary edema. Right hilar fullness and airspace opacity in the right upper lobe with adjacent pleural thickening. Findings may be infectious although neoplasm cannot be strictly excluded. Consider a CT of the chest with IV contrast for further evaluation. Dictated by: Sam Carlson M.D. on 09/25/2021 at 13:04 Approved by: Sam Carlson M.D. on 09/25/2021 at 13:05
[2021-09-25 12:46] LABS: Fractionated Inspired Oxygen 36; HCO3 ABG 29 mmol/L (22-26); Oxygen Saturation ABG 97 % (95-100); PCO2 ABG 41.2 mmHg (35-45); PO2 ABG 92 mmHg (80-100); TCO2 ABG 30 mmol/L (21-31); pH ABG 7.45 (7.35-7.45)
[2021-09-25 12:49] LABS: Add Manual Diff / Slide Review NO; Basophils Absolute Auto 0 /uL (0-100); Basophils Percent Auto 0.4 % (0-2); Eosinophils Absolute Auto 0 /uL (0-450); Hematocrit 54.4 % (36-46); Hemoglobin 17.6 g/dL (12.0-16.0); Lymphocytes Absolute Auto 800 /uL (1100-4500); Lymphocytes Percent Auto 14.9 % (25-40); Mean Corpuscular HGB Conc 32.2 % (30-36); Mean Corpuscular Hemoglobin 27.2 PG (26-34); Mean Corpuscular Volume 84.4 fL (80-100); Monocytes Absolute Auto 600 /uL (0-900); Monocytes Percent Auto 12.2 % (3-14); Neutrophils Absolute Auto 3900 /uL (1500-7000); Neutrophils Percent Auto 72.5 % (50-75); Platelet Count 161 X10^3/uL (150-400); Red Blood Cell Count 6.45 X10^6/uL (4.0-5.2); Red Cell Distribution Width 16.9 % (11.6-14.8); White Blood Cell Count 5.3 X10^3/uL (4.5-11.0)
[2021-09-25 13:01] LABS: Lactate (Lactic Acid) 1.7 mmol/L (0.7-2.1)
[2021-09-25 13:03] LABS: Magnesium 1.6 mg/dL (1.6-2.3)
[2021-09-25 13:05] LABS: D Dimer 5240 ng/mL (<230)
--- NOTE | 2021-09-25 13:11 | DI.CT.S_ITS ---
PROCEDURE: CT ANGIO CHEST PE PROTOCOL INDICATIONS: elevated d dimer TECHNIQUE: After the administration of intravenous contrast, 2 mm thick sections acquired from the pulmonary apices to the posterior costophrenic angles. 3-dimensional maximum intensity projection (MIP) coronal and sagittal reformats were then acquired through the thorax. For radiation dose reduction, the following was used: automated exposure control, adjustment of mA and/or kV according to patient size. COMPARISON: None. FINDINGS: Image quality: Excellent. Pulmonary arteries: Pulmonary arteries are prominent in size and measures up to 4.1 cm in diameter concerning for pulmonary vascular hypertension. Intraluminal filling defects are seen involving segmental and subsegmental branches of left upper and lower lobe pulmonary arteries and subsegmental branches of right lower lobe pulmonary artery. Finding is consistent with fairly extensive bilateral pulmonary emboli. Lungs and pleura: There is prominent reticular nodular thickening in periphery of bilateral lung [place] suggestive of early interstitial pulmonary fibrosis. Patchy hazy ground-glass opacities are seen scattered in bilateral lung [place] suggestive of area of pulmonary edema versus pneumonitis. Trace right pleural effusion is seen. No pneumothorax. Central and peripheral airways are patent. Mediastinum: Heart size is markedly enlarged, without pericardial effusion. Prominent mediastinal and hilar lymph nodes are seen measures up to 1.3 cm in short axis diameter in right paratracheal space. Ascending thoracic aortic aneurysm measures up to 4.4 cm in largest AP diameter is noted. Esophagus is normal in caliber, with a small hiatal hernia. Bones and chest wall: No suspicious bony lesions. Subacute appearing fractures involving right lateral 2nd through 6th ribs are seen. No acute vertebral body compression fracture. hyroid gland is within normal limits. No axillary or supraclavicular adenopathy. Abdomen: Visualized upper abdominal solid organs appear normal in the early arterial phase of enhancement. IMPRESSION: 1. Pulmonary emboli within segmental and subsegmental branches of left upper and lower lobe pulmonary arteries and subsegmental branches of right lower lobe pulmonary artery. 2. Enlarged pulmonary artery size concerning for pulmonary vascular hypertension. 3. Ascending thoracic aortic aneurysm measures up to 4.4 cm in largest AP diameter. Cardiomegaly, no pericardial effusion. 4. Reticular nodular thickening in periphery of bilateral lung [place] concerning for early interstitial pulmonary fibrosis. Hazy ground-glass opacities scattered in bilateral lung [place] suggestive of pulmonary edema versus pneumonitis. Trace right pleural effusion. No pneumothorax. Airway is patent. 5. Nonspecific enlarged mediastinal and hilar lymph nodes suggestive of reactive inflammatory nodes. Dictated by: Jarod Mejias M.D. on 09/25/2021 at 15:10 Approved by: Jarod Mejias M.D. on 09/25/2021 at 15:20
[2021-09-25 13:13] LABS: NT-proBNP (BNP-Adult 18+) 11800 pg/mL (<125); Troponin I 0.031 ng/mL (0.01-0.034)
[2021-09-25 13:18] LABS: Procalcitonin 0.24 ng/mL (<0.5)
[2021-09-25 13:37] LABS: COVID19 -Nasal RAPID POSITIVE (Negative)
[2021-09-25 14:21] LABS: Alanine Aminotransferase 20 IU/L (<35); Albumin Globulin Ratio 0.9 (1.0-2.8); Alkaline Phosphatase 77 U/L (38-126); Aspartate Aminotransferase 33 IU/L (14-36); BUN Creatinine Ratio 26.2 (6-22); Bilirubin Total 1.1 mg/dL (0.2-1.3); Blood Urea Nitrogen 33 mg/dL (7-17); Calcium 9.4 mg/dL (8.4-10.2); Carbon Dioxide 26 mmol/L (22-32); Chloride 102 mmol/L (98-107); Estimated Glomerular Filt Rate 42.1 mL/min (>60); Globulin 4.4 g/dL (1.7-4.1); Glucose 119 mg/dL (80-110); HEMOLYSIS 15 (0-50); Potassium 4.3 mmol/L (3.4-5.1); Sodium 136 mmol/L (137-145); Total Protein 8.4 g/dL (6.3-8.2)
[2021-09-25] MEDS: HEPARIN 5,000 UNIT/ML VIAL 7500 UNIT IV (15:35)
[2021-09-25] MEDS: HEPARIN DRIP 25,000 UNIT/500 ML IV.SOLN 24 UNIT IV (15:36)
[2021-09-25 15:41] LABS: PTT Partial Thromboplastin Tim 29 SECONDS (26.4-36.2)
[2021-09-25 16:04] LABS: PTT Partial Thromboplastin Tim 26 SECONDS (26.4-36.2)
[2021-09-25] MEDS: DEXAMETHASONE 10 MG/ML VIAL IV (18:02)
[2021-09-25] MEDS: GABAPENTIN 600 MG TABLET PO ×2 (18:02→21:01)
--- NOTE | 2021-09-25 18:38 | PC.NURSE ---
Admit Note Pt arrived to room 230 from ER at 1700 via stretcher. Pt attempted to move self from bed from stretcher but required frequent cueing and ultimately required a 3 person lateral assist. Oriented to self and place, delayed responses. On 4L NC with SPO2 94-95%. Reports shortness of breath improved but still present, RR in the 20s. HR in the 90s, NSR BBB, PACS/PVCS. Incontinent of bowel, cleansed and brief applied. No void since ER, Barba catheter placed with MD order without issue, timur, clear urine resulting. 2-3+ pitting edema to BLEs, BLEs dusky, pulses palpable. All belongings in room, cell phone at bedside and clothing in room closet. Declines to lock up any valuables. Provider currently at bedside with pt. Oriented patient to room and to call light/bed/tv controls. Call light within reach. Bed alarm on for safety.
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
[2021-09-25 19:07] LABS: Troponin I 0.039 ng/mL (0.01-0.034)
[2021-09-25 20:28] LABS: Influenza A - CEPHEID Flu A NEGATIVE (NEGATIVE); Influenza B - CEPHEID Flu B NEGATIVE (NEGATIVE)
[2021-09-25 22:04] LABS: Troponin I 0.036 ng/mL (0.01-0.034)
[2021-09-25 22:16] LABS: PTT Partial Thromboplastin Tim 109 SECONDS (26.4-36.2)
--- NOTE | 2021-09-25 22:42 | PM.CN.EICU ---
History of Present Illness Consult details Chief complaint: CHF/Hypoxia/Not Eating or Drinking/Trouble Walking :: This patient was seen via real time interactive two-way audiovisual telecommunication. Narrative: 71 y.o. female w/ PMHx of pulmonary HTN who presented to ED with several days of SOB and anorexia. She was tachypneic to the 30s and had oxygen saturation in 80s. She was started on nasal cannula O2. D-dimer was 5240 and a pulmonary CTA showed segmental and subsegmental PEs in the ANNA, LLL and RLL. She was started on IV heparin. COVID-19 test was (+). She is unvaccinated. BNP returned extremely elevated at 11,800. Troponins have been 0.031, 0.039, and 0.036. 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 Surgical History History of appendectomy History of tonsillectomy Family History Mother Rheumatoid arthritis Father Heart attack Social History household members: spouse Smoking Status: Never smoker alcohol intake: never Current Medications Current Medications Medications: Home Medications furosemide 40 mg tablet 40 mg PO DAILY 09/25/21 [History Confirmed 09/25/21] gabapentin 600 mg tablet 600 mg PO TID 09/25/21 [History Confirmed 09/25/21] levothyroxine 100 mcg tablet 100 mcg PO DAILY 09/25/21 [History Confirmed 09/25/21] losartan 100 mg tablet 100 mg PO DAILY 09/25/21 [History Confirmed 09/25/21] potassium chloride 20 mEq tablet,extended release(part/cryst) 20 meq PO DAILY 09/25/21 [History Confirmed 09/25/21] sertraline 50 mg tablet 100 mg PO DAILY 09/25/21 [History Confirmed 09/25/21] tramadol 50 mg tablet 50 mg PO QID PRN 09/25/21 [History Confirmed 09/25/21] Visit Medications (administered) Generic Name Dose Route Start Last Admin Trade Name Sawyer PRN Reason Stop Dose Admin Gabapentin 600 mg 09/25/21 17:45 09/25/21 21:01 Gabapentin 600 Mg Tablet PO 600 mg TID YOU Administration Heparin Sodium/Dextrose 25,000 unit in 500 mls @ 24 mls/hr 09/25/21 15:30 09/25/21 22:18 Heparin Drip IV 1,100 units/hr CONT YOU 22 mls/hr Titration Protocol 1,200 UNITS/HR Review of Systems Review of Systems Narrative: Not perfomed at patient is sleeping Exam Vital Signs (past 8 hours): - 09/25/21 14:45 09/25/21 15:00 09/25/21 15:15 Temperature Pulse Rate 93 H 93 H 91 H Respiratory Rate 23 54 H 22 Blood Pressure Pulse Oximetry 97 97 97 09/25/21 15:30 09/25/21 15:32 09/25/21 15:45 Temperature Pulse Rate 87 95 H 96 H Respiratory Rate 38 H 63 H 28 H Blood Pressure 128/91 H 128/91 H Pulse Oximetry 98 99 97 09/25/21 16:00 09/25/21 16:15 09/25/21 16:30 Temperature Pulse Rate 96 H 73 90 Respiratory Rate 31 H 27 H 30 H Blood Pressure Pulse Oximetry 96 97 96 09/25/21 17:33 09/25/21 17:36 09/25/21 18:07 Temperature 97.6 F 98 F Pulse Rate 86 95 H 79 Respiratory Rate 24 32 H 27 H Blood Pressure 142/91 H 142/91 H Pulse Oximetry 93 96 96 09/25/21 18:50 09/25/21 19:00 09/25/21 19:15 Temperature Pulse Rate 96 H 91 H Respiratory Rate 38 H 36 H 35 H Blood Pressure 146/89 H 148/90 H Pulse Oximetry 95 96 96 09/25/21 19:30 09/25/21 19:45 09/25/21 19:53 Temperature 97.8 F Pulse Rate 92 H 91 H 93 H Respiratory Rate 41 H 47 H 38 H Blood Pressure 156/107 H Pulse Oximetry 96 96 96 09/25/21 19:55 09/25/21 20:00 09/25/21 20:15 Temperature 97.9 F Pulse Rate 95 H 96 H Respiratory Rate 40 H 38 H Blood Pressure 156/107 H Pulse Oximetry 97 97 97 09/25/21 20:30 09/25/21 20:35 09/25/21 20:45 Temperature Pulse Rate 93 H 93 H 92 H Respiratory Rate 30 H 39 H 33 H Blood Pressure 155/102 H Pulse Oximetry 95 96 95 09/25/21 21:00 09/25/21 21:11 09/25/21 21:15 Temperature Pulse Rate 92 H 92 H 93 H Respiratory Rate 34 H 33 H 38 H Blood Pressure 143/110 H 143/110 H Pulse Oximetry 95 95 95 09/25/21 21:30 09/25/21 21:45 09/25/21 22:00 Temperature Pulse Rate 89 86 86 Respiratory Rate 48 H 35 H 60 H Blood Pressure 157/105 H Pulse Oximetry 97 97 96 09/25/21 22:15 Temperature Pulse Rate 77 Respiratory Rate 40 H Blood Pressure Pulse Oximetry 95 Oxygen Delivery Method Nasal Cannula Oxygen Flow Rate 5 Const General: comfortable Resp Effort & Inspection: normal respiratory effort Objective Labs Result Diagrams: 09/25/21 12:35 09/25/21 13:50 Labs: Laboratory Results - last 24 hr 09/25/21 09/25/21 09/25/21 12:10 12:10 12:24 WBC RBC Hgb Hct MCV MCH MCHC RDW Plt Count Neut % (Auto) Lymph % (Auto) [place] % (Auto) Eos % (Auto) Baso % (Auto) Neut # (Auto) Lymph # (Auto) [place] # (Auto) Eos # (Auto) Baso # (Auto) APTT D-Dimer ABG pH 7.45 ABG pCO2 41.2 ABG pO2 92 ABG HCO3 29 H ABG Total CO2 30 ABG O2 Saturation 97 ABG Base Excess 5.0 H FiO2 36 Sodium Potassium Chloride Carbon Dioxide BUN Creatinine Estimated GFR BUN/Creatinine Ratio Glucose Lactate Calcium Magnesium Total Bilirubin AST ALT Alkaline Phosphatase Troponin I NT-Pro-B Natriuret Pep Total Protein Albumin Globulin Albumin/Globulin Ratio Procalcitonin Nasal Screen MRSA (PCR) SARS-CoV-2 (PCR) Positive H Influenza A (RT-PCR) Flu a negative Influenza B (RT-PCR) Flu b negative 09/25/21 09/25/21 09/25/21 12:35 12:35 12:35 WBC 5.3 RBC 6.45 H Hgb 17.6 H Hct 54.4 H MCV 84.4 MCH 27.2 MCHC 32.2 RDW 16.9 H Plt Count 161 Neut % (Auto) 72.5 Lymph % (Auto) 14.9 L [place] % (Auto) 12.2 Eos % (Auto) 0.0 L Baso % (Auto) 0.4 Neut # (Auto) 3900 Lymph # (Auto) 800 L [place] # (Auto) 600 Eos # (Auto) 0 Baso # (Auto) 0 APTT D-Dimer 5240 H ABG pH ABG pCO2 ABG pO2 ABG HCO3 ABG Total CO2 ABG O2 Saturation ABG Base Excess FiO2 Sodium Potassium Chloride Carbon Dioxide BUN Creatinine Estimated GFR BUN/Creatinine Ratio Glucose Lactate Calcium Magnesium 1.6 Total Bilirubin AST ALT Alkaline Phosphatase Troponin I 0.031 NT-Pro-B Natriuret Pep 00780 H Total Protein Albumin Globulin Albumin/Globulin Ratio Procalcitonin 0.24 Nasal Screen MRSA (PCR) SARS-CoV-2 (PCR) Influenza A (RT-PCR) Influenza B (RT-PCR) 09/25/21 09/25/21 09/25/21 12:35 13:50 13:50 WBC RBC Hgb Hct MCV MCH MCHC RDW Plt Count Neut % (Auto) Lymph % (Auto) [place] % (Auto) Eos % (Auto) Baso % (Auto) Neut # (Auto) Lymph # (Auto) [place] # (Auto) Eos # (Auto) Baso # (Auto) APTT 29 D-Dimer ABG pH ABG pCO2 ABG pO2 ABG HCO3 ABG Total CO2 ABG O2 Saturation ABG Base Excess FiO2 Sodium 136 L Potassium 4.3 Chloride 102 Carbon Dioxide 26 BUN 33 H Creatinine 1.26 H Estimated GFR 42.1 L BUN/Creatinine Ratio 26.2 H Glucose 119 H Lactate 1.7 Calcium 9.4 Magnesium Total Bilirubin 1.1 AST 33 ALT 20 Alkaline Phosphatase 77 Troponin I NT-Pro-B Natriuret Pep Total Protein 8.4 H Albumin 4.0 Globulin 4.4 H Albumin/Globulin Ratio 0.9 L Procalcitonin Nasal Screen MRSA (PCR) SARS-CoV-2 (PCR) Influenza A (RT-PCR) Influenza B (RT-PCR) 09/25/21 09/25/21 09/25/21 15:30 17:30 18:13 WBC RBC Hgb Hct MCV MCH MCHC RDW Plt Count Neut % (Auto) Lymph % (Auto) [place] % (Auto) Eos % (Auto) Baso % (Auto) Neut # (Auto) Lymph # (Auto) [place] # (Auto) Eos # (Auto) Baso # (Auto) APTT 26 L D-Dimer ABG pH ABG pCO2 ABG pO2 ABG HCO3 ABG Total CO2 ABG O2 Saturation ABG Base Excess FiO2 Sodium Potassium Chloride Carbon Dioxide BUN Creatinine Estimated GFR BUN/Creatinine Ratio Glucose Lactate Calcium Magnesium Total Bilirubin AST ALT Alkaline Phosphatase Troponin I 0.039 H NT-Pro-B Natriuret Pep Total Protein Albumin Globulin Albumin/Globulin Ratio Procalcitonin Nasal Screen MRSA (PCR) Positive for mrsa H SARS-CoV-2 (PCR) Influenza A (RT-PCR) Influenza B (RT-PCR) 09/25/21 09/25/21 21:30 21:30 WBC RBC Hgb Hct MCV MCH MCHC RDW Plt Count Neut % (Auto) Lymph % (Auto) [place] % (Auto) Eos % (Auto) Baso % (Auto) Neut # (Auto) Lymph # (Auto) [place] # (Auto) Eos # (Auto) Baso # (Auto) APTT 109 H* D D-Dimer ABG pH ABG pCO2 ABG pO2 ABG HCO3 ABG Total CO2 ABG O2 Saturation ABG Base Excess FiO2 Sodium Potassium Chloride Carbon Dioxide BUN Creatinine Estimated GFR BUN/Creatinine Ratio Glucose Lactate Calcium Magnesium Total Bilirubin AST ALT Alkaline Phosphatase Troponin I 0.036 H NT-Pro-B Natriuret Pep Total Protein Albumin Globulin Albumin/Globulin Ratio Procalcitonin Nasal Screen MRSA (PCR) SARS-CoV-2 (PCR) Influenza A (RT-PCR) Influenza B (RT-PCR) Assessment & Plan Assessment and plan (1) Pulmonary embolism: Status: Acute Plan: -Continue IV heparin -Check 2-D echo KODY -Given elevated BNP and apparent preexisting pulmonary HTN, recommend that this patient be transferred to a facility capable of catheter-directed thrombolysis or thrombolytics. Due to the lack of a emergency neurosurgical services @ [facility], thrombolytics cannot be given (2) COVID-19: Status: Acute Plan: -Continue dexamethasone -Given eGFR is > 30, would start remdesivir -If O2 requirement increases, would consider baricitinib (3) Hypothyroidism (acquired): Status: Acute Plan: -Continue levothyroxine Time Spent With Patient Critical Care time: I spent a total of [] minutes of critical care time on this patient's care today; this time is exclusive of procedural time.
[2021-09-25 23:33] LABS: TSH w/ Reflex to FT4 3.58 uIU/mL (0.47-4.68)
[2021-09-26] VITALS (28 sets, daily range): BP systolic 125–154; BP diastolic 66–106; PULSE 54–92; RESP 16–53; TEMP 35.9–36.8; O2SAT 92–99
--- NOTE | 2021-09-26 00:14 | DI.CT.S_ITS ---
PROCEDURE: CT HEAD/BRAIN WO CON INDICATIONS: Altered mental status, Obtunded on heparin for PE's TECHNIQUE: Noncontrast 4.5 mm thick angled axial sections acquired from the foramen magnum to the vertex, with coronal and sagittal reformats. For radiation dose reduction, the following was used: automated exposure control, adjustment of mA and/or kV according to patient size. COMPARISON: None. FINDINGS: Image quality: Excellent. CSF spaces: Basal cisterns are patent. No extra-axial fluid collections. The ventricles are symmetric in size and shape. Brain: No intracranial bleeds or masses. There is cerebral volume loss for age, with resultant ventricular and sulcal prominence. There are periventricular and deep white matter chronic small vessel ischemic changes. There is intracranial internal carotid artery atherosclerosis. Skull and face: Calvarium and visualized facial bones appear intact, without suspicious lesions. Sinuses: Visualized sinuses demonstrate right maxillary sinus mucous retention cyst versus polyp. IMPRESSION: 1. No acute intracranial process. 2. Moderate atrophy and chronic microvascular ischemic changes. Dictated by: Letha Carrillo M.D. on 09/26/2021 at 1:32 Approved by: Letha Carrillo M.D. on 09/26/2021 at 1:33
--- NOTE | 2021-09-26 02:31 | PC.NURSE ---
0000 Neuro status changed, pt unarousable where previously she was able to oriented x4. Withdraws to painful stimuli. BG checked and noted to be 117. Magazine Writer notified of change, ABG ordered and done, Head CT ordered and done. Pt woke while in CT and spoke to the tech. Unable to stay awake. Hospitalist aware of all changes.
[2021-09-26 03:05] LABS: Fractionated Inspired Oxygen 40; HCO3 ABG 28 mmol/L (22-26); Oxygen Saturation ABG 95 % (95-100); PCO2 ABG 44.5 mmHg (35-45); PO2 ABG 76 mmHg (80-100); TCO2 ABG 29 mmol/L (21-31)
[2021-09-26 05:28] LABS: PTT Partial Thromboplastin Tim 54 SECONDS (26.4-36.2)
[2021-09-26 05:36] LABS: Alanine Aminotransferase 19 IU/L (<35); Albumin 3.8 g/dL (3.5-5.0); Albumin Globulin Ratio 0.9 (1.0-2.8); Alkaline Phosphatase 64 U/L (38-126); Aspartate Aminotransferase 35 IU/L (14-36); Blood Urea Nitrogen 34 mg/dL (7-17); Calcium 9.5 mg/dL (8.4-10.2); Carbon Dioxide 30 mmol/L (22-32); Chloride 100 mmol/L (98-107); Estimated Glomerular Filt Rate 38.6 mL/min (>60); Globulin 4.3 g/dL (1.7-4.1); Glucose 137 mg/dL (80-110); Magnesium 1.8 mg/dL (1.6-2.3); Sodium 136 mmol/L (137-145); Total Protein 8.1 g/dL (6.3-8.2)
[2021-09-26 05:38] LABS: Cholesterol 170 mg/dL (140-199); HDL Cholesterol 38 mg/dL (40-60); HEMOLYSIS 88 (0-50); LDL Cholesterol Calculated 112 mg/dL (<100); Triglycerides 98 mg/dL (35-150)
[2021-09-26 05:39] LABS: Potassium 5.3 mmol/L (3.4-5.1)
[2021-09-26 05:43] LABS: Hemoglobin A1C% w Est Avg Glu 6.8 % (4.0-6.0)
[2021-09-26 05:45] LABS: NT-proBNP (BNP-Adult 18+) 6870 pg/mL (<125)
[2021-09-26] MEDS: HEPARIN 5,000 UNIT/ML VIAL 2000 UNIT IV ×2 (06:07→22:57)
[2021-09-26 07:00] LABS: Hematocrit 54.3 % (36-46); Hemoglobin 17.7 g/dL (12.0-16.0); Mean Corpuscular HGB Conc 32.6 % (30-36); Mean Corpuscular Hemoglobin 27.3 PG (26-34); Mean Corpuscular Volume 83.7 fL (80-100); Red Blood Cell Count 6.48 X10^6/uL (4.0-5.2); Red Cell Distribution Width 16.7 % (11.6-14.8); White Blood Cell Count 2.9 X10^3/uL (4.5-11.0)
[2021-09-26 07:01] LABS: Add Manual Diff / Slide Review YES
[2021-09-26 08:20] LABS: Neutrophils Absolute Manual 2204 /uL (3000-5900); Total Cells Counted 100
[2021-09-26 08:22] LABS: Anisocytosis 1+
[2021-09-26 08:27] LABS: Platelet Count 144 X10^3/uL (150-400)
--- NOTE | 2021-09-26 10:24 | PT-IP ANOTE ---
PT eval received. EMR reviewed. Pt found to have multiple lobes PE. Talked with nurse and pt has been on heparin IV for only at least 18 hours. Will hold PT eval at this time per protocol to see pt after 24 hours of anticoagulation medication. Nurse agreed. Will f/u.
--- NOTE | 2021-09-26 11:32 | PC.NURSE ---
Addendum entered by Jacki Hartley R.N. 09/26/21 15:37: Update to spouse, Monitoring mentation changes, and Pt is tolerating diet without difficulty. Addendum entered by Jacki Hartley R.N. 09/26/21 14:55: 1400-Unable to obtain labs, order rec'd for midline for better access. DI Nurse placed midline to [place]. Ptt drawn. Order for diet placed, Pt is able to show bedside swallow eval safely. PO meds given. Pt is self mobilizing in bed. 3-4L spo2 >94% Tele remains with increased PVC [place]. Addendum entered by Jacki Hartley R.N. 09/26/21 12:55: 1300, Pt is improving with improved mental status, able to speak in sentences, and while forgetful, Pt is oriented. Labs drawn for PTT for updated Heparin dosing Original Note: AM shift Pt remains drowsy, but is able to wake and answer simple questions. NPO for swallow safety. PO meds held. Tele remains with BBB, bigemeny and frequent pvcs.HR 80's at present, at rest. On 4L. Lungs are coarse and occasional cough noted. Heparin gtt infusing @ 24 mls/hr 1200units hour. Forgetful and viewed from nursing station.
[2021-09-26] MEDS: DEXAMETHASONE 10 MG/ML VIAL 6 MG IV (11:39)
--- NOTE | 2021-09-26 13:19 | OT.IPNOTE ---
Per nursing pt getting to be more alert but requested OT to check back later with the pt for OT eval.
[2021-09-26] MEDS: HEPARIN DRIP 25,000 UNIT/500 ML IV.SOLN 24 UNIT IV (13:53)
[2021-09-26] MEDS: SERTRALINE 50 MG TABLET 100 MG PO (14:28)
--- NOTE | 2021-09-26 15:48 | P.TELICUPN_ITS ---
Subjective Subjective :: This patient was seen via real time interactive two-way audiovisual telecommunication. Patient remains on HFNC, slight higer fio2 requirments. HD stable and abg reviewed. I reivewed her TTE report, and she clealry has severe phtn. etiology remains unclear - likely gorup 2 vs cteph Current Medications Current Medications Medications: Home Medications furosemide 40 mg tablet 40 mg PO DAILY 09/25/21 [History Confirmed 09/25/21] gabapentin 600 mg tablet 600 mg PO TID 09/25/21 [History Confirmed 09/25/21] levothyroxine 100 mcg tablet 100 mcg PO DAILY 09/25/21 [History Confirmed 09/25/21] losartan 100 mg tablet 100 mg PO DAILY 09/25/21 [History Confirmed 09/25/21] potassium chloride 20 mEq tablet,extended release(part/cryst) 20 meq PO DAILY 09/25/21 [History Confirmed 09/25/21] sertraline 50 mg tablet 100 mg PO DAILY 09/25/21 [History Confirmed 09/25/21] tramadol 50 mg tablet 50 mg PO QID PRN 09/25/21 [History Confirmed 09/25/21] Visit Medications (administered) Generic Name Dose Route Start Last Admin Trade Name Freq PRN Reason Stop Dose Admin Dexamethasone 6 mg 09/26/21 09:00 09/26/21 11:39 Dexamethasone 10 Mg/Ml Vial IV 6 mg DAILY YOU Administration Gabapentin 600 mg 09/25/21 17:45 09/26/21 11:31 Gabapentin 600 Mg Tablet PO Not Given TID YOU Heparin Sodium/Dextrose 25,000 unit in 500 mls @ 24 mls/hr 09/25/21 15:30 09/26/21 13:53 Heparin Drip IV 1,200 units/hr CONT YOU 24 mls/hr Administration Protocol 1,200 UNITS/HR Levothyroxine Sodium 100 mcg 09/26/21 06:00 09/26/21 06:05 Levothyroxine 100 Mcg Tablet PO Not Given 0600 YOU Sertraline HCl 100 mg 09/26/21 09:00 09/26/21 14:28 Sertraline 50 Mg Tablet PO 100 mg DAILY YOU Administration Objective Labs Result Diagrams: 09/26/21 04:55 09/26/21 04:55 Labs: Laboratory Results - last 24 hr 09/25/21 09/25/2109/25/22 12:10 12:35 13:50 WBC RBC Hgb Hct MCV MCH MCHC RDW Plt Count Neut % (Auto) Lymph % (Auto) [place] % (Auto) Eos % (Auto) Baso % (Auto) Lymph # (Auto) [place] # (Auto) Baso # (Auto) Total Counted Seg Neutrophils % Band Neutrophils % Lymphocytes % (Manual) Atypical Lymphs % Monocytes % (Manual) Neutrophils # (Manual) RBC Morphology Anisocytosis APTT ABG pH ABG pCO2 ABG pO2 ABG HCO3 ABG Total CO2 ABG O2 Saturation ABG Base Excess FiO2 Sodium Potassium Chloride Carbon Dioxide BUN Creatinine Estimated GFR BUN/Creatinine Ratio Glucose Hemoglobin A1c 6.8 H Calcium Magnesium Total Bilirubin AST ALT Alkaline Phosphatase Troponin I NT-Pro-B Natriuret Pep Total Protein Albumin Globulin Albumin/Globulin Ratio Triglycerides Cholesterol LDL Cholesterol, Calc HDL Cholesterol TSH 3.58 Nasal Screen MRSA (PCR) Influenza A (RT-PCR) Flu a negative Influenza B (RT-PCR) Flu b negative 09/25/21 09/25/21 09/25/21 15:30 17:30 18:13 WBC RBC Hgb Hct MCV MCH MCHC RDW Plt Count Neut % (Auto) Lymph % (Auto) [place] % (Auto) Eos % (Auto) Baso % (Auto) Lymph # (Auto) [place] # (Auto) Baso # (Auto) Total Counted Seg Neutrophils % Band Neutrophils % Lymphocytes % (Manual) Atypical Lymphs % Monocytes % (Manual) Neutrophils # (Manual) RBC Morphology Anisocytosis APTT 26 L ABG pH ABG pCO2 ABG pO2 ABG HCO3 ABG Total CO2 ABG O2 Saturation ABG Base Excess FiO2 Sodium Potassium Chloride Carbon Dioxide BUN Creatinine Estimated GFR BUN/Creatinine Ratio Glucose Hemoglobin A1c Calcium Magnesium Total Bilirubin AST ALT Alkaline Phosphatase Troponin I 0.039 H NT-Pro-B Natriuret Pep Total Protein Albumin Globulin Albumin/Globulin Ratio Triglycerides Cholesterol LDL Cholesterol, Calc HDL Cholesterol TSH Nasal Screen MRSA (PCR) Positive for mrsa H Influenza A (RT-PCR) Influenza B (RT-PCR) 09/25/21 09/25/21 09/26/21 21:30 21:30 00:29 WBC RBC Hgb Hct MCV MCH MCHC RDW Plt Count Neut % (Auto) Lymph % (Auto) [place] % (Auto) Eos % (Auto) Baso % (Auto) Lymph # (Auto) [place] # (Auto) Baso # (Auto) Total Counted Seg Neutrophils % Band Neutrophils % Lymphocytes % (Manual) Atypical Lymphs % Monocytes % (Manual) Neutrophils # (Manual) RBC Morphology Anisocytosis APTT 109 H* D ABG pH 7.40 ABG pCO2 44.5 ABG pO2 76 L ABG HCO3 28 H ABG Total CO2 29 ABG O2 Saturation 95 ABG Base Excess 3.0 H FiO2 40 Sodium Potassium Chloride Carbon Dioxide BUN Creatinine Estimated GFR BUN/Creatinine Ratio Glucose Hemoglobin A1c Calcium Magnesium Total Bilirubin AST ALT Alkaline Phosphatase Troponin I 0.036 H NT-Pro-B Natriuret Pep Total Protein Albumin Globulin Albumin/Globulin Ratio Triglycerides Cholesterol LDL Cholesterol, Calc HDL Cholesterol TSH Nasal Screen MRSA (PCR) Influenza A (RT-PCR) Influenza B (RT-PCR) 09/26/21 09/26/21 09/26/21 04:55 04:55 04:55 WBC 2.9 L RBC 6.48 H Hgb 17.7 H Hct 54.3 H MCV 83.7 MCH 27.3 MCHC 32.6 RDW 16.7 H Plt Count 144 L Neut % (Auto) Not Reportable Lymph % (Auto) Not Reportable [place] % (Auto) Not Reportable Eos % (Auto) Not Reportable Baso % (Auto) Not Reportable Lymph # (Auto) Not Reportable [place] # (Auto) Not Reportable Baso # (Auto) Not Reportable Total Counted 100 Seg Neutrophils % 72.0 H Band Neutrophils % 4.0 Lymphocytes % (Manual) 14.0 L Atypical Lymphs % 4.0 H Monocytes % (Manual) 6.0 Neutrophils # (Manual) 2204 L RBC Morphology See below Anisocytosis 1+ H APTT 54 H D ABG pH ABG pCO2 ABG pO2 ABG HCO3 ABG Total CO2 ABG O2 Saturation ABG Base Excess FiO2 Sodium 136 L Potassium 5.3 H Chloride 100 Carbon Dioxide 30 BUN 34 H Creatinine 1.36 H Estimated GFR 38.6 L BUN/Creatinine Ratio 25.0 H Glucose 137 H Hemoglobin A1c Calcium 9.5 Magnesium 1.8 Total Bilirubin 1.0 AST 35 ALT 19 Alkaline Phosphatase 64 Troponin I NT-Pro-B Natriuret Pep 6870 H Total Protein 8.1 Albumin 3.8 Globulin 4.3 H Albumin/Globulin Ratio 0.9 L Triglycerides Cholesterol LDL Cholesterol, Calc HDL Cholesterol TSH Nasal Screen MRSA (PCR) Influenza A (RT-PCR) Influenza B (RT-PCR) 09/26/21 04:55 WBC RBC Hgb Hct MCV MCH MCHC RDW Plt Count Neut % (Auto) Lymph % (Auto) [place] % (Auto) Eos % (Auto) Baso % (Auto) Lymph # (Auto) [place] # (Auto) Baso # (Auto) Total Counted Seg Neutrophils % Band Neutrophils % Lymphocytes % (Manual) Atypical Lymphs % Monocytes % (Manual) Neutrophils # (Manual) RBC Morphology Anisocytosis APTT ABG pH ABG pCO2 ABG pO2 ABG HCO3 ABG Total CO2 ABG O2 Saturation ABG Base Excess FiO2 Sodium Potassium Chloride Carbon Dioxide BUN Creatinine Estimated GFR BUN/Creatinine Ratio Glucose Hemoglobin A1c Calcium Magnesium Total Bilirubin AST ALT Alkaline Phosphatase Troponin I NT-Pro-B Natriuret Pep Total Protein Albumin Globulin Albumin/Globulin Ratio Triglycerides 98 Cholesterol 170 LDL Cholesterol, Calc 112 H HDL Cholesterol 38 L TSH Nasal Screen MRSA (PCR) Influenza A (RT-PCR) Influenza B (RT-PCR) Exam Vital Signs (past 8 hours): - 09/26/21 08:00 09/26/21 12:00 Temperature 98.2 F 97.8 F Pulse Rate 66 78 Respiratory Rate 27 H 22 Blood Pressure 131/68 147/68 H Pulse Oximetry 97 97 Oxygen Delivery Method Nasal Cannula Oxygen Flow Rate 4 Narrative Exam Narrative: surrogate for exam is primary team Quality TeleICU VTE Deep Vein Thrombosis/Pulmonary Embolism Present on Admission: No Assessment & Plan Assessment & Plan narrative: ASsessment Acute hypoxemic resp failure COVID 19 PNA ARDS severe pulmonary htn pulmonary embolism Plan continue high flow trend ABG adat trend UO and bmp trend cbc cont heparin gtt covid tx protocol - dexamethasone If she bomces HD unstable woudl rec giving 1/2 dose tpa ( 50mg) otherwise, She should at somepoint undergo a right heart cath to determine e tiology, or a v/q scan 3-6 months post dc can also be considered. The treatment regardles will be AC, and supportive outside group 1. CCT 35 min Time Spent With Patient Critical Care time: I spent a total of [] minutes of critical care time on this patient's care today; this time is exclusive of procedural time.
--- NOTE | 2021-09-26 16:06 | P.PN_ITS ---
Subjective Subjective Interval history: Patient somnolent this morning, but arousable, and after a few minutes, able to menaningfully interact with history acquisition. She denies any acute complaints. She denies ever having DVT or PE in the past. Denies any active complaints. Exam Vital Signs (past 8 hours): - 09/26/21 12:00 Temperature 97.8 F Pulse Rate 78 Respiratory Rate 22 Blood Pressure 147/68 H Pulse Oximetry 97 Oxygen Delivery Method Nasal Cannula Oxygen Flow Rate 4 Const Other: Patient laying in bed comfortably upon my entering the room, sleeping. Eyes Other: No scleral icterus appreciated. Neck Other: No carotid bruits appreciated. Resp Other: Lung sounds diminished bilaterally, without adventitious sounds appreicated. Cardio Other: RRR. S1 and S2 heart sounds heard, with no additional heart sounds or murmurs appreciated. No peripheral edema noted. GI Other: Soft, non-distended, non-tender. Bowel sounds present. Skin Other: No grossly abnormal skin lesions appreciated. Extrem Other: Palpable radial and dorsalis pedis pulses, bilaterally. Objective Labs Result Diagrams: 09/26/21 04:55 09/26/21 04:55 Labs: Laboratory Results - last 24 hr 09/25/21 09/25/21 09/25/21 12:10 12:35 13:50 WBC RBC Hgb Hct MCV MCH MCHC RDW Plt Count Neut % (Auto) Lymph % (Auto) [place] % (Auto) Eos % (Auto) Baso % (Auto) Lymph # (Auto) [place] # (Auto) Baso # (Auto) Total Counted Seg Neutrophils % Band Neutrophils % Lymphocytes % (Manual) Atypical Lymphs % Monocytes % (Manual) Neutrophils # (Manual) RBC Morphology Anisocytosis APTT ABG pH ABG pCO2 ABG pO2 ABG HCO3 ABG Total CO2 ABG O2 Saturation ABG Base Excess FiO2 Sodium Potassium Chloride Carbon Dioxide BUN Creatinine Estimated GFR BUN/Creatinine Ratio Glucose Hemoglobin A1c 6.8 H Calcium Magnesium Total Bilirubin AST ALT Alkaline Phosphatase Troponin I NT-Pro-B Natriuret Pep Total Protein Albumin Globulin Albumin/Globulin Ratio Triglycerides Cholesterol LDL Cholesterol, Calc HDL Cholesterol TSH 3.58 Nasal Screen MRSA (PCR) Influenza A (RT-PCR) Flu a negative Influenza B (RT-PCR) Flu b negative 09/25/21 09/25/21 09/25/21 17:30 18:13 21:30 WBC RBC Hgb Hct MCV MCH MCHC RDW Plt Count Neut % (Auto) Lymph % (Auto) [place] % (Auto) Eos % (Auto) Baso % (Auto) Lymph # (Auto) [place] # (Auto) Baso # (Auto) Total Counted Seg Neutrophils % Band Neutrophils % Lymphocytes % (Manual) Atypical Lymphs % Monocytes % (Manual) Neutrophils # (Manual) RBC Morphology Anisocytosis APTT 109 H* D ABG pH ABG pCO2 ABG pO2 ABG HCO3 ABG Total CO2 ABG O2 Saturation ABG Base Excess FiO2 Sodium Potassium Chloride Carbon Dioxide BUN Creatinine Estimated GFR BUN/Creatinine Ratio Glucose Hemoglobin A1c Calcium Magnesium Total Bilirubin AST ALT Alkaline Phosphatase Troponin I 0.039 H NT-Pro-B Natriuret Pep Total Protein Albumin Globulin Albumin/Globulin Ratio Triglycerides Cholesterol LDL Cholesterol, Calc HDL Cholesterol TSH Nasal Screen MRSA (PCR) Positive for mrsa H Influenza A (RT-PCR) Influenza B (RT-PCR) 09/25/21 09/26/21 09/26/21 21:30 00:29 04:55 WBC RBC Hgb Hct MCV MCH MCHC RDW Plt Count Neut % (Auto) Lymph % (Auto) [place] % (Auto) Eos % (Auto) Baso % (Auto) Lymph # (Auto) [place] # (Auto) Baso # (Auto) Total Counted Seg Neutrophils % Band Neutrophils % Lymphocytes % (Manual) Atypical Lymphs % Monocytes % (Manual) Neutrophils # (Manual) RBC Morphology Anisocytosis APTT ABG pH 7.40 ABG pCO2 44.5 ABG pO2 76 L ABG HCO3 28 H ABG Total CO2 29 ABG O2 Saturation 95 ABG Base Excess 3.0 H FiO2 40 Sodium 136 L Potassium 5.3 H Chloride 100 Carbon Dioxide 30 BUN 34 H Creatinine 1.36 H Estimated GFR 38.6 L BUN/Creatinine Ratio 25.0 H Glucose 137 H Hemoglobin A1c Calcium 9.5 Magnesium 1.8 Total Bilirubin 1.0 AST 35 ALT 19 Alkaline Phosphatase 64 Troponin I 0.036 H NT-Pro-B Natriuret Pep 6870 H Total Protein 8.1 Albumin 3.8 Globulin 4.3 H Albumin/Globulin Ratio 0.9 L Triglycerides Cholesterol LDL Cholesterol, Calc HDL Cholesterol TSH Nasal Screen MRSA (PCR) Influenza A (RT-PCR) Influenza B (RT-PCR) 02/01/22 02/01/22 02/01/22 04:55 04:55 04:55 WBC 2.9 L RBC 6.48 H Hgb 17.7 H Hct 54.3 H MCV 83.7 MCH 27.3 MCHC 32.6 RDW 16.7 H Plt Count 144 L Neut % (Auto) Not Reportable Lymph % (Auto) Not Reportable [place] % (Auto) Not Reportable Eos % (Auto) Not Reportable Baso % (Auto) Not Reportable Lymph # (Auto) Not Reportable [place] # (Auto) Not Reportable Baso # (Auto) Not Reportable Total Counted 100 Seg Neutrophils % 72.0 H Band Neutrophils % 4.0 Lymphocytes % (Manual) 14.0 L Atypical Lymphs % 4.0 H Monocytes % (Manual) 6.0 Neutrophils # (Manual) 2204 L RBC Morphology See below Anisocytosis 1+ H APTT 54 H D ABG pH ABG pCO2 ABG pO2 ABG HCO3 ABG Total CO2 ABG O2 Saturation ABG Base Excess FiO2 Sodium Potassium Chloride Carbon Dioxide BUN Creatinine Estimated GFR BUN/Creatinine Ratio Glucose Hemoglobin A1c Calcium Magnesium Total Bilirubin AST ALT Alkaline Phosphatase Troponin I NT-Pro-B Natriuret Pep Total Protein Albumin Globulin Albumin/Globulin Ratio Triglycerides 98 Cholesterol 170 LDL Cholesterol, Calc 112 H HDL Cholesterol 38 L TSH Nasal Screen MRSA (PCR) Influenza A (RT-PCR) Influenza B (RT-PCR) [facility] Medical History Cardiomegaly CHF (congestive heart failure), NYHA class I Chronic back pain Depression Hypothyroidism (acquired) Pulmonary hypertension Right bundle nicki block, 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 Vent systolic function, Pulm HTN, hypothyroidism, chronic back pain, depression, unvaccinated against COVID-19 who presented to the ED with severe dyspnea, tachypnea, and 3 days of lethargy. Patient's D-dimer was 5240 on CTA patient was found to have segmental and subsegmental bilateral pulmonary emboli. Based on patient's recent echocardiogram and presentation today concerned that the patient is at high risk of developing and compensated right heart failure/right heart strain. 1. Acute respiratory failure with hypoxia, secondary to PE, acute, present on admission -ICU admit, tele-road repairer consult Dr. Plata -dexamethasone on-board -Albuterol HFA, encourage proning, incentive spirometry 2. Pulmonary emboli (segmental, subsegmental branches of left upper/lower lobe pulmonary arteries and subsegmental branches of right lower lobe pulmonary artery) -heparin drip on-board, can likely transition to PO anticoagulation after 48 hrs or so-holding diuresis as the patient may be preload dependent -holding losartan for now -BNP 29704, troponin 0.039 -echocardiogram on 09/22/2021:?EF 50-55%,?right ventricle is moderately dilated, with right ventricular systolic function is mildly to moderately reduced. The right ventricular systolic pressure is estimated to be at least 62 mmHg based on an estimated right atrial pressure of 8 mm Hg.? 3. Cognitive impairment, acute, present on admission, improving -likely secondary to developing uncompensated acute right heart failure secondary to pulmonary emboli from severe acute respiratory failure, present on admission 4. Hypothyroidism, acquired, chronic, present on admission -TSH with free T4 ordered 5. Depression, chronic, present on admission -continue sertraline 6. Chronic low back pain, chronic, present on admission -continue gabapentin and tramadol VTE prophylaxis: IV heparin on-board for new dx PE Time Spent With Patient Critical Care time: I spent a total of [] minutes of critical care time on this patient's care today; this time is exclusive of procedural time. Quality VTE Deep Vein Thrombosis/Pulmonary Embolism Present on Admission: No MIPS - Admit I confirm the patient?s Advance Care Plan is present, Code status is documented, Surrogate decision maker is in patient?s record [If Yes, STOP here]: Yes
--- NOTE | 2021-09-26 16:17 | OT.IPNOTE ---
Went to check on pt, pt asleep. To check on pt for OT eval tomorrow.
[2021-09-26 17:55] LABS: PTT Partial Thromboplastin Tim 63 SECONDS (26.4-36.2)
--- NOTE | 2021-09-26 20:28 | PM.ICURNDS ---
- :: This patient was seen via real time interactive two-way audiovisual telecommunication. Multidisciplinary rounds completed. Patient is AAOX4 and on 3 liters NC. On heparin infusion for bilateral PE and decadron for COVID PNA. Continue supportive care and wean down supplemental oxygen to maintain goal SpO2 > 90%. D/w RN. Note: Multidisciplinary rounds completed.
[2021-09-26] MEDS: TRAMADOL 50 MG TABLET PO (21:28)
[2021-09-26] MEDS: GABAPENTIN 600 MG TABLET PO (21:28)
[2021-09-26 21:57] LABS: BUN Creatinine Ratio 32.2 (6-22); Blood Urea Nitrogen 38 mg/dL (7-17); Calcium 9.3 mg/dL (8.4-10.2); Carbon Dioxide 30 mmol/L (22-32); Chloride 102 mmol/L (98-107); Estimated Glomerular Filt Rate 45.4 mL/min (>60); Glucose 150 mg/dL (80-110); HEMOLYSIS < 15 (0-50); Potassium 4.3 mmol/L (3.4-5.1); Sodium 135 mmol/L (137-145)
[2021-09-26 22:34] LABS: PTT Partial Thromboplastin Tim 57 SECONDS (26.4-36.2)
[2021-09-27] VITALS (44 sets, daily range): BP systolic 128–136; BP diastolic 82–88; PULSE 63–92; RESP 19–48; TEMP 36.6–37.3; O2SAT 85–98
[2021-09-27 05:12] LABS: Alanine Aminotransferase 18 IU/L (<35); Albumin 3.4 g/dL (3.5-5.0); Albumin Globulin Ratio 0.9 (1.0-2.8); Alkaline Phosphatase 66 U/L (38-126); Aspartate Aminotransferase 28 IU/L (14-36); BUN Creatinine Ratio 31.6 (6-22); Bilirubin Total 0.7 mg/dL (0.2-1.3); Blood Urea Nitrogen 37 mg/dL (7-17); Carbon Dioxide 32 mmol/L (22-32); Chloride 101 mmol/L (98-107); Estimated Glomerular Filt Rate 45.9 mL/min (>60); Glucose 120 mg/dL (80-110); HEMOLYSIS < 15 (0-50); Magnesium 1.8 mg/dL (1.6-2.3); Potassium 4.2 mmol/L (3.4-5.1); Sodium 134 mmol/L (137-145); Total Protein 7.4 g/dL (6.3-8.2)
[2021-09-27 05:13] LABS: PTT Partial Thromboplastin Tim 83 SECONDS (26.4-36.2)
[2021-09-27] MEDS: LEVOTHYROXINE 100 MCG TABLET PO (06:07)
[2021-09-27] MEDS: DEXAMETHASONE 10 MG/ML VIAL 6 MG IV (09:19)
[2021-09-27] MEDS: GABAPENTIN 600 MG TABLET PO ×3 (09:19→21:25)
[2021-09-27] MEDS: ONDANSETRON 4 MG/2 ML INJ IV (09:20)
[2021-09-27] MEDS: SERTRALINE 50 MG TABLET 100 MG PO (09:20)
--- NOTE | 2021-09-27 10:26 | P.TELICUPN_ITS ---
Subjective Subjective :: This patient was seen via real time interactive two-way audiovisual telecommunication. patient imrpoved, off o2, and only on heparin gtt Current Medications Current Medications Medications: Home Medications furosemide 40 mg tablet 40 mg PO DAILY 09/25/21 [History Confirmed 09/25/21] gabapentin 600 mg tablet 600 mg PO TID 09/25/21 [History Confirmed 09/25/21] levothyroxine 100 mcg tablet 100 mcg PO DAILY 09/25/21 [History Confirmed 09/25/21] losartan 100 mg tablet 100 mg PO DAILY 09/25/21 [History Confirmed 09/25/21] potassium chloride 20 mEq tablet,extended release(part/cryst) 20 meq PO DAILY 09/25/21 [History Confirmed 09/25/21] sertraline 50 mg tablet 100 mg PO DAILY 09/25/21 [History Confirmed 09/25/21] tramadol 50 mg tablet 50 mg PO QID PRN 09/25/21 [History Confirmed 09/25/21] Visit Medications (administered) Generic Name Dose Route Start Last Admin Trade Name Ajq PRN Reason Stop Dose Admin Dexamethasone 6 mg 09/26/21 09:00 09/27/21 09:19 Dexamethasone 10 Mg/Ml Vial IV 6 mg DAILY YOU Administration Gabapentin 600 mg 09/25/21 17:45 09/27/21 09:19 Gabapentin 600 Mg Tablet PO 600 mg TID YOU Administration Heparin Sodium/Dextrose 25,000 unit in 500 mls @ 24 mls/hr 09/25/21 15:30 0 09/26/21 22:57 Heparin Drip IV 1,300 units/hr CONT YOU 26 mls/hr Titration Protocol 1,200 UNITS/HR Levothyroxine Sodium 100 mcg 09/26/21 06:00 09/27/21 06:07 Levothyroxine 100 Mcg Tablet PO 100 mcg 0600 YOU Administration Ondansetron HCl 4 mg 09/25/21 17:04 09/27/21 09:20 Ondansetron 4 Mg/2 Ml Inj IV 4 mg Q8HR PRN Administration Nausea And Vomiting Sertraline HCl 100 mg 09/26/21 09:00 09/27/21 09:20 Sertraline 50 Mg Tablet PO 100 mg DAILY YOU Administration Tramadol HCl 50 mg 09/25/21 17:44 09/26/21 21:28 Tramadol 50 Mg Tablet PO 50 mg QID PRN Administration Pain (Scale Score 4-6) Objective Labs Result Diagrams: 09/26/21 04:55 09/27/21 04:57 Labs: Laboratory Results - last 24 hr 09/26/21 09/26/21 09/26/21 15:34 21:30 21:30 APTT 63 H D 57 H Sodium 135 L Potassium 4.3 Chloride 102 Carbon Dioxide 30 BUN 38 H Creatinine 1.18 H Estimated GFR 45.4 L BUN/Creatinine Ratio 32.2 H Glucose 150 H Calcium 9.3 Magnesium Total Bilirubin AST ALT Alkaline Phosphatase Total Protein Albumin Globulin Albumin/Globulin Ratio 09/27/21 09/27/21 04:57 04:57 APTT 83 H* D Sodium 134 L Potassium 4.2 Chloride 101 Carbon Dioxide 32 BUN 37 H Creatinine 1.17 H Estimated GFR 45.9 L BUN/Creatinine Ratio 31.6 H Glucose 120 H Calcium 9.0 Magnesium 1.8 Total Bilirubin 0.7 AST 28 ALT 18 Alkaline Phosphatase 66 Total Protein 7.4 Albumin 3.4 L Globulin 4.0 Albumin/Globulin Ratio 0.9 L Exam Vital Signs (past 8 hours): - 09/27/21 03:00 09/27/21 05:57 Pulse Rate 65 67 Respiratory Rate 42 H 32 H Blood Pressure 136/82 Pulse Oximetry 95 96 Oxygen Delivery Method Nasal Cannula Oxygen Flow Rate 3.5 Narrative Exam Narrative: surrogate for exam is primary team Quality TeleICU VTE Deep Vein Thrombosis/Pulmonary Embolism Present on Admission: No Assessment & Plan Assessment & Plan narrative: ASsessment Acute hypoxemic resp failure COVID 19 PNA ARDS severe pulmonary htn pulmonary embolism Plan on RA adat trend UO and bmp trend cbc cont heparin gtt covid tx protocol - dexamethasone If she bomces HD unstable woudl rec giving 1/2 dose tpa ( 50mg) otherwise, She should at somepoint undergo a right heart cath to determine etiology, or a v/q scan 3-6 months post dc can also be considered. The treatment regardles will be AC, and supportive outside group 1. Time Spent With Patient Critical Care time: I spent a total of [] minutes of critical care time on this patient's care today; this time is exclusive of procedural time.
--- NOTE | 2021-09-27 10:50 | PT.IIE ---
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 Physical Therapy Inpatient Evaluation/Re-Eval M1 PT/OT-IP Prior Functional Status Start: 09/27/21 12:34 Freq: NEEDED Status: Active Protocol: Document 09/27/21 10:50 AB (Rec: 09/27/21 12:51 AB [email or web address]) Medical Review Prior Functional Status Medical History Reviewed Yes Communication able to make needs known Mobility and Gait Pt stated that she is independent with all mobilities and ambulation using SPC; pt stated that she uses a Porter splint (AFO) on LLE due to charcot foot Social History Household Members spouse Living Arrangements House Number of Floors (Floors) Two Floors Number of Stairs To Enter/Railing? pt has a ramp to enter the house has 7 steps with B rails to get to bedroom level Home Environment Standard Height Toilet,Tub/ Shower Home Equipment Straight Cane,Raised Toilet Seat Without Armrests,Tub Transfer Bench,Hand Held Shower,Grab Bars Near Toilet Employment Status Retired Additional Social History Comment Pt is a retired nurse M2 PT-IP Current Condition Start: 09/27/21 12:34 Freq: NEEDED Status: Active Protocol: Document 09/27/21 10:50 AB (Rec: 09/27/21 12:51 AB [email or web address]) Physical Therapy Current Condition Current Condition Evaluation Date 09/27/21 Treatment Diagnosis PE; Covid (+); difficulty in walking Onset Date 09/25/21 M3 PT-IP Subjective Start: 09/27/21 12:34 Freq: NEEDED Status: Active Protocol: Document 09/27/21 10:50 AB (Rec: 09/27/21 12:51 AB [email or web address]) Subjective Physical Therapy Visit Type Type Initial Evaluation Visit Start Time 10:50 Visit Stop Time 11:30 Total Visit Minutes 40 Number of EXPORT ADMINISTRATOR Visits 0 Physical Therapy Visit Comments Patient Comments agreeable to do PT M4 PT-IP Mobility and Gait Start: 09/27/21 12:34 Freq: NEEDED Status: Active Protocol: Document 09/27/21 10:50 AB (Rec: 09/27/21 12:51 AB [email or web address]) PT-Bed Mobility Assessment Supine to Sit Supine to Sit Standby Assistance,Head of Bed Elevated Sit to Supine Sit to Supine Standby Assistance PT-Transfer Assessment Sit to and From Stand Sit to and from Stand Minimal Assistance,1 Person Assistance,Use of Upper Extremities Equipment Transfer Assistive Device Gait Belt,Front Wheeled Walker Orthotic/Prosthetic Devices or Brace: No Comments Mobility Comments O2 sat at rest with O2 on: 98% pt completed supine to sit SBA . pt able to sit on EOB SBA. O2 sat: 94%. pt has charcot foot on L and stated that she usually has a brace for LLE but does not have it in her room. informed pt to ask her spouse to bring it in and agreed. completed sit to stand min A. min A for standing balance. agreed to take a few steps and completed ~ 2 ft using FWW min A and cues. pt rested and agreed to do another set and completed 2 ft using FWW min A. pt requested to go back to bed afterwards and completed sit to supine SBA. positioned pt in bed. O2 sat decreased to 90%. call light and table placecd within reach. informed nurse regarding pt's mobility and O2 sat. Gait Assessment Gait Gait Assistance Required: Minimum Assistance Distance (Feet) 2 Able to Maintain Weight Bearing Status Yes During Gait Assistive Devices Assistive Device Gait Belt,Front Wheeled Walker Orthotic/Prosthetic Devices or Brace: No Gait Deviations General Gait Pattern Antalgic,Decreased Stride Length,Decreased Feet Clearance,Step-to Gait Factors Limiting Gait Function Factors Limiting Gait Function Decreased Activity Tolerance, Decreased Strength,Difficulty Following Directions,Limited Range of Motion,Poor Balance, Poor Safety Awareness, Respiratory Distress PT-Balance Assessment Sitting Balance and Reactions Static Sitting Balance Ability Good Dynamic Sitting Balance Ability Fair Standing Balance and Reactions Static Standing Balance Ability Fair Dynamic Standing Balance Ability Poor Device Used FWW M5 PT-IP Objective Assessments Start: 09/27/21 12:34 Freq: NEEDED Status: Active Protocol: Document 09/27/21 10:50 AB (Rec: 09/27/21 12:51 AB [email or web address]) Orientation Orientation/Cognition Level of Alertness Alert Orientation Name Language Function Ability Hard of Hearing Safety Awareness Decreased Safety Awareness Memory Description Short Term Impaired Gross Range of Motion Lower Extremity ROM Assessment Within Functional Limits Strength Lower Extremity Strength Assessment Bilaterally Impaired Hip 3+/5 Knee 3+/5 Ankle 3/5 Sensation Assessment Sensation Gross Sensation Right LE Impaired,Left LE Impaired Sensation Description Numbness Comments Sensation Comments neuropathy per pt mid lower leg all the way to B feet Muscle Tone Muscle Tone WNL Yes M6 PT-IP Treatment Start: 09/27/21 12:34 Freq: NEEDED Status: Active Protocol: Document 09/27/21 10:50 AB (Rec: 09/27/21 12:51 AB [email or web address]) Physical Therapy Treatment Education Education Provided Precautions,Safety M7 PT-IP Assessment and Plan Start: 09/27/21 12:34 Freq: NEEDED Status: Active Protocol: Document 09/27/21 10:50 AB (Rec: 09/27/21 12:51 AB [email or web address]) PT Summary Assessment and Plan Potential Rehabilitation Potential Fair Status of Condition at Evaluation Evolving Summary Impairments Pain,ROM,Strength,Balance, Coordination,Sensation,Tone, Cognition,Bed Mobility, Transfers,Gait,Activity Tolerance Assessment Summary Pt admitted for (+) Covid, multi lobe PE and (+) MRSA nasal and requiring min A with mobility using FWW but unable to tolerate much activity with decrease in o2 sat to ~ 90% with activity. pt lives wiht spouse and spouse will be able to assist pt at home. will continue to assess progress. Pt will benefit from HHPT. Goals Bed Mobility Goal Independent Transfer Goal Independent,Front Wheeled Walker Gait Goal Independent,Front Wheel Walker Gait Distance 100 Other Goals improve ambulation using SPC SBA 150 ft up/down 7 steps R rails SBA Days to Meet Goals 10 Frequency of Treatment Frequency Of Treatment Once a Day Treatment Plan Physical Therapy Treatment Plan Bed Mobility Training,Transfer Training,Gait Training, Therapeutic Exercise,Balance Retraining,Discharge Planning, Hot or Cold Pack,Neuromuscular Re-ed,Coordination Retraining Precautions Other Precautions Covid (+), MRSA nasal, PE Recommendations To Nursing Amount of Assist Needed 1 Person Assist Discharge Recommendations PT Discharge Recommendations Home with 24/7 Assist Available,Home Health Transportation Needs at Discharge Private Vehicle,Wheelchair/ Cabulance
[2021-09-27] MEDS: MAG HYDROX/ALUM/SIMETH 30 ML UDC PO (10:52)
[2021-09-27] MEDS: TRAMADOL 50 MG TABLET PO (12:40)
--- NOTE | 2021-09-27 13:48 | OT.IP.EVAL ---
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 Surgical History (Last Reviewed 09/25/21 @ 22:53 by Negro Plata MD) History of appendectomy History of tonsillectomy Occupational Therapy Inpatient Evaluation/Re-Eval M1 PT/OT-IP Prior Functional Status Start: 09/27/21 12:34 Freq: NEEDED Status: Active Protocol: Document 09/27/21 14:21 [facility] (Rec: 09/27/21 14:36 [facility] [id number]) Medical Review Prior Functional Status Medical History Reviewed Yes Communication able to make needs known Mobility and Gait Pt stated that she is independent with all mobilities and ambulation using SPC; pt stated that she uses a Porter splint (AFO) on LLE due to charcot foot Activities of Daily Living and IADL's Pt states prior in completely independent with her needs. Pt states has to sit often as unable to stand for long periods of time due to her left charcot foot. Social History Household Members spouse Living Arrangements House Number of Floors (Floors) Two Floors Number of Stairs To Enter/Railing? pt has a ramp to enter the house has 7 steps with B rails to get to bedroom level Home Environment Standard Height Toilet,Tub/ Shower Home Equipment Straight Cane,Raised Toilet Seat Without Armrests,Tub Transfer Bench,Hand Held Shower,Grab Bars Near Toilet Employment Status Retired Additional Social History Comment Pt is a retired nurse M2 OT-IP Current Condition Start: 09/27/21 14:20 Freq: Status: Active Protocol: Document 09/27/21 14:21 [facility] (Rec: 09/27/21 14:36 [facility] [id number]) Occupational Therapy Current Condition Current Condition Evaluation Date 09/27/21 Treatment Diagnosis COVID+ PNA Diagnosis Onset Date 09/25/21 M3 OT- IP Subjective and Pain Start: 09/27/21 14:20 Freq: Status: Active Protocol: Document 09/27/21 14:21 [facility] (Rec: 09/27/21 14:36 [facility] [id number]) OT- Subjective Occupational Therapy Visit Type Type Initial Evaluation Visit Start Time 13:48 Visit Stop Time 14:15 Total Visit Minutes 27 Occupational Therapy Visit Comments Patient Comments Pt agreed to get up to the recliner to eat. Patient/Caregiver Goals TO go home. OT Pain Assessment Pain When Pain Assessed At Rest Pain Present Pain Present Denied Pain M4 OT- IP ADL's Start: 09/27/21 14:20 Freq: Status: Active Protocol: Document 09/27/21 14:21 [facility] (Rec: 09/27/21 14:36 [facility] [id number]) OT [id number] General Evaluation Self-Feeding Ability Independent OT ADL-Grooming Comments OT Grooming Comments Not able to get to the sink, as needing another o2 extension and pt states would rather try tomorrow instead. OT ADL-Oral Care Comments Oral Care Comments Not performed. OT ADL-Dressing General Eval Lower Body Dressing Ability Independent Comments OT Dressing Comments Pt able to deina/doff her socks while seated on the edge of the bed. OT ADL-Toileting General Evaluation Toileting Ability Total Assistance Comments OT Toileting Comments Barba in place. OT ADL-Bathing Comments OT Bathing Comments Not performed. M5 OT- IP IADL's Start: 09/27/21 14:20 Freq: Status: Active Protocol: Document 09/27/21 14:21 [facility] (Rec: 09/27/21 14:36 [facility] [id number]) OT-Instrumental Activities of Daily Living Home Safety Awareness Awareness of Need for Assistance at Home Good Awareness Ability to Problem Solve Emergency Able to Problem Solve Situations Medication Management Medication Management No Deficits Identified Money Management Money Management No Deficits Identified Meal Preparation Meal Preparation Comments Pt states usually sits on a stool to cook as unable to stand for long periods of time . Aids Social Worker Aids Social Worker Caregiver Provides Assist M6 OT- IP Functional Cognition Start: 09/27/21 14:20 Freq: Status: Active Protocol: Document 09/27/21 14:21 [facility] (Rec: 09/27/21 14:36 [facility] [id number]) Cognitive Factors Limiting Selfcare Function Cognitive Ability Level of Alertness Alert Patient Orientation Name,Age,Birthday,Month,Date, Year,Day of Week,Place, Situation Attention Span Ability Capable of Focused Attention, Capable of Sustained Attention Ability to Follow Commands Able to Follow One Step Commands Safety Awareness Underestimates Need for Assistance Cognitive Comments Cognitive Assessment Comments Pt able to follow commands for ADl and mobility needs. To continue to assess cognitive needs. Pt felt that she is able to transfer without the FWW and attempted and now pt realizes that is would be best to use a FWW to get around at this time. OT- Vision and Hearing OT- Hearing Assessment OT- Hearing Assessment WFL M7 OT- IP Mobility and Balance Start: 09/27/21 14:20 Freq: Status: Active Protocol: Document 09/27/21 14:21 [facility] (Rec: 09/27/21 14:36 [facility] [id number]) OT- Bed Mobility Assessment Supine to Sit Supine to Sit Assist Standby Assistance OT-Transfer Assessment Sit to and From Stand Sit to and from Stand Contact Guard Assistance Transfers Transfer Ability Minimal Assistance,Moderate Assistance Technique Transfer Destination Bed,Chair Devices Transfer Assistive Devices None,Gait Belt Comments Mobility Comments Pt on 2L f O2 and at 94% and dropped to 87% for brief moment and able to increase to 92% after transfer. Pt unsteady on her feet and losing her balance and needing MIN/MODA to take a few steps to the recliner. At this time safer for pt to use the FWW for mobility needs. OT- Balance Assessment Sitting Balance and Reactions Static Sitting Balance Ability Normal Dynamic Sitting Balance Ability Good Standing Balance and Reactions Static Standing Balance Ability Fair Dynamic Standing Balance Ability Poor M8 OT- IP Objective Assessments Start: 09/27/21 14:20 Freq: Status: Active Protocol: Document 09/27/21 14:21 [facility] (Rec: 09/27/21 14:36 [facility] [id number]) OT Gross Range of Motion Upper Extremity Range of Motion ROM Impairments grossly WFL OT Strength Comments Strength Comments BUE strength from proximal to distal 4-/5 to 4/5 OT-Muscle Tone Assessment Muscle Tone WNL Yes M9 OT- IP Assessment and Plan Start: 09/27/21 14:20 Freq: Status: Active Protocol: Document 09/27/21 14:21 [facility] (Rec: 09/27/21 14:36 [facility] [id number]) OT Summary Assessment and Plan Potential Rehabilitation Potential Good Analytic Complexity at Evaluation Moderate Summary OT Impairments Strength,Balance,Functional Cognition,Functional Mobility, Grooming,Toileting,Bathing, Toilet Transfers,Shower Transfers,Activity Tolerance Progress Towards Goals Slow Progress due to Activity Tolerance Assessment Summary Pt MOD complexity and here due to COVID+ PNA and main barriers are steps, decreased activity tolerance, and now will need assist especially for IADl needs. Pt looking to go home with assist and home health would be beneficial for the pt. Goals Grooming Goal Independent Dressing Goal Independent Toileting Goal Independent Bathing Goal Independent Toilet Transfer Goal Independent Shower Transfer Goal Independent Patient/Caregiver Education Goal Demonstrate Energy Conservation and Pacing Days to Meet Goals 10 Frequency of Treatment Frequency Of Treatment Once a Day Treatment Plan OT Treatment Plan ADL Training,Functional Cognition Training,Functional Mobility,Patient/Family Education,Discharge Planning Other Treatment Recommendations and Next Stand at sink for grooming Treatment Focus needs with FWW. Discharge Recommendations OT Discharge Recommendations Home with Assistance,Home Health Home Equipment Needs FWW Transportation Needs at Discharge Private Vehicle
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
[2021-09-27] MEDS: HEPARIN DRIP 25,000 UNIT/500 ML IV.SOLN 26 UNIT IV (15:53)
--- NOTE | 2021-09-27 19:55 | P.PN_ITS ---
Subjective Subjective Interval history: Patient endorses feeling much better this morning. She understands that she might require oxygen nasal cannulae when she's discharged. Reports good PO intake, with good output, too. Denies any active complaints. Exam Vital Signs (past 8 hours): - 09/27/21 14:40 09/27/21 18:04 Temperature 97.9 F Pulse Rate 86 85 Respiratory Rate 43 H 27 H Blood Pressure 128/85 Pulse Oximetry 96 93 Oxygen Delivery Method Nasal Cannula Oxygen Flow Rate 2 Narrative Exam Narrative: Const Other: Patient laying in bed comfortably upon my entering the room, sleeping. Eyes Other: No scleral icterus appreciated. Neck Other: No carotid bruits appreciated. Resp Other: Lung sounds diminished bilaterally, without adventitious sounds appreicated. Cardio Other: RRR. S1 and S2 heart sounds heard, with no additional heart sounds or murmurs appreciated. No peripheral edema noted. GI Other: Soft, non-distended, non-tender. Bowel sounds present. Skin Other: No grossly abnormal skin lesions appreciated. Extrem Other: Palpable radial and dorsalis pedis pulses, bilaterally. Objective Labs Result Diagrams: 09/26/21 04:55 09/27/21 04:57 Labs: Laboratory Results - last 24 hr 09/26/21 09/26/21 09/27/21 21:30 21:30 04:57 APTT 57 H Sodium 135 L 134 L Potassium 4.3 4.2 Chloride 102 101 Carbon Dioxide 30 32 BUN 38 H 37 H Creatinine 1.18 H 1.17 H Estimated GFR 45.4 L 45.9 L BUN/Creatinine Ratio 32.2 H 31.6 H Glucose 150 H 120 H Calcium 9.3 9.0 Magnesium 1.8 Total Bilirubin 0.7 AST 28 ALT 18 Alkaline Phosphatase 66 Total Protein 7.4 Albumin 3.4 L Globulin 4.0 Albumin/Globulin Ratio 0.9 L 09/27/21 04:57 APTT 83 H* D Sodium Potassium Chloride Carbon Dioxide BUN Creatinine Estimated GFR BUN/Creatinine Ratio Glucose Calcium Magnesium Total Bilirubin AST ALT Alkaline Phosphatase Total Protein Albumin Globulin Albumin/Globulin Ratio [facility] Medical History Cardiomegaly CHF (congestive heart failure), NYHA class I Chronic back pain Depression Hypothyroidism (acquired) Pulmonary hypertension Right bundle nicki block, 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 Vent systolic function, Pulm HTN, hypothyroidism, chronic back pain, depression, unvaccinated against COVID-19 who presented to the ED with severe dyspnea, tachypnea, and 3 days of lethargy. P cindy's D-dimer was 5240 on CTA patient was found to have segmental and subsegmental bilateral pulmonary emboli. Based on patient's recent echocardiogram and presentation today concerned that the patient is at high risk of developing and compensated right heart failure/right heart strain. 1. Acute respiratory failure with hypoxia, secondary to PE, acute, present on admission -ICU admit, tele-crib attendant consult Dr. Plata -dexamethasone on-board -Albuterol HFA, encourage proning, incentive spirometry 2. Pulmonary emboli (segmental, subsegmental branches of left upper/lower lobe pulmonary arteries and subsegmental branches of right lower lobe pulmonary artery) -heparin drip on-board, can likely transition to PO anticoagulation after 48 hrs or so-holding diuresis as the patient may be preload dependent -holding losartan for now -BNP 63992, troponin 0.039 -echocardiogram on 09/22/2021:?EF 50-55%,?right ventricle is moderately dilated, with right ventricular systolic function is mildly to moderately reduced. The right ventricular systolic pressure is estimated to be at least 62 mmHg based on an estimated right atrial pressure of 8 mm Hg.? 3. Cognitive impairment, acute, present on admission, improving -likely secondary to developing uncompensated acute right heart failure secondary to pulmonary emboli from severe acute respiratory failure, present on admission 4. Hypothyroidism, acquired, chronic, present on admission -TSH with free T4 ordered 5. Depression, chronic, present on admission -continue sertraline 6. Chronic low back pain, chronic, present on admission -continue gabapentin and tramadol VTE prophylaxis: IV heparin on-board for new dx PE Time Spent With Patient Critical Care time: I spent a total of [] minutes of critical care time on this patient's care today; this time is exclusive of procedural time. Quality VTE Deep Vein Thrombosis/Pulmonary Embolism Present on Admission: No
--- NOTE | 2021-09-27 20:06 | PM.ICURNDS ---
- :: This patient was seen via real time interactive two-way audiovisual telecommunication. Multidisciplinary rounds completed. On 3 liters NC and heparin infusion for PE. Remains hemodynamically stable for over 24 hours. Okay to downgrade from ICU. D/w RN. Note: Multidisciplinary rounds completed. On 3 liters NC.
[2021-09-28] VITALS (7 sets, daily range): BP systolic 113–148; BP diastolic 54–97; PULSE 57–78; RESP 15–39; TEMP 35.8–36.9; O2SAT 93–97
--- NOTE | 2021-09-28 05:10 | PC.NURSE ---
Shift Note: Patient remained on O2 support by nasal cannula at 3lpm with O2 sat >92% throughout the shift, denies any pain/discomfort. Afebrile, vital signs are within acceptable limits. Patient was alert and orientedx4; lungs are clear with fine coarse at the bases; hypoactive bowel sounds. Patient still on heparin drip, repeat PTT was taken, awaiting results, no active bleeding noted. Barba cath in placed and intact with adequate urine output. Will continue to monitor.
[2021-09-28 05:26] LABS: Add Manual Diff / Slide Review NO; Basophils Absolute Auto 0 /uL (0-100); Basophils Percent Auto 0.4 % (0-2); Eosinophils Absolute Auto 0 /uL (0-450); Hematocrit 47.2 % (36-46); Hemoglobin 15.3 g/dL (12.0-16.0); Lymphocytes Absolute Auto 900 /uL (1100-4500); Mean Corpuscular HGB Conc 32.5 % (30-36); Mean Corpuscular Hemoglobin 27.5 PG (26-34); Mean Corpuscular Volume 84.5 fL (80-100); Monocytes Absolute Auto 600 /uL (0-900); Monocytes Percent Auto 10.2 % (3-14); Neutrophils Absolute Auto 4100 /uL (1500-7000); Neutrophils Percent Auto 73.4 % (50-75); Platelet Count 176 X10^3/uL (150-400); Red Blood Cell Count 5.58 X10^6/uL (4.0-5.2); Red Cell Distribution Width 16.2 % (11.6-14.8); White Blood Cell Count 5.6 X10^3/uL (4.5-11.0)
[2021-09-28 05:37] LABS: PTT Partial Thromboplastin Tim 98 SECONDS (26.4-36.2)
[2021-09-28 05:55] LABS: Alanine Aminotransferase 16 IU/L (<35); Albumin 3.1 g/dL (3.5-5.0); Albumin Globulin Ratio 0.8 (1.0-2.8); Alkaline Phosphatase 55 U/L (38-126); Aspartate Aminotransferase 24 IU/L (14-36); BUN Creatinine Ratio 33.1 (6-22); Bilirubin Total 0.6 mg/dL (0.2-1.3); Blood Urea Nitrogen 39 mg/dL (7-17); Carbon Dioxide 34 mmol/L (22-32); Chloride 99 mmol/L (98-107); Estimated Glomerular Filt Rate 45.4 mL/min (>60); Globulin 3.8 g/dL (1.7-4.1); Glucose 119 mg/dL (80-110); HEMOLYSIS 17 (0-50); Magnesium 1.9 mg/dL (1.6-2.3); Potassium 4.7 mmol/L (3.4-5.1); Sodium 133 mmol/L (137-145); Total Protein 6.9 g/dL (6.3-8.2)
[2021-09-28] MEDS: LEVOTHYROXINE 100 MCG TABLET PO (06:19)
[2021-09-28] MEDS: HEPARIN DRIP 25,000 UNIT/500 ML IV.SOLN 26 UNIT IV (06:22)
[2021-09-28] MEDS: SERTRALINE 50 MG TABLET 100 MG PO (08:44)
[2021-09-28] MEDS: DEXAMETHASONE 10 MG/ML VIAL 6 MG IV (08:44)
[2021-09-28] MEDS: GABAPENTIN 600 MG TABLET PO ×3 (08:44→20:32)
[2021-09-28] MEDS: MAG HYDROX/ALUM/SIMETH 30 ML UDC PO (11:46)
[2021-09-28] MEDS: SODIUM CHLORIDE 0.9% FLUSH 10 ML IV ×2 (13:44→20:33)
--- NOTE | 2021-09-28 14:22 | PT.IPTN ---
Current Diagnoses Hypothyroidism, unspecified (09/25/21) Other pulmonary embolism without acute cor pulmonale (09/25/21) COVID-19 (09/25/21) Physical Therapy Treatment Note M2 PT-IP Current Condition Start: 09/27/21 12:34 Freq: NEEDED Status: Active Protocol: Document 09/27/21 10:50 [facility] (Rec: 09/27/21 12:51 AB [id number]) Physical Therapy Current Condition Current Condition Evaluation Date 09/27/21 Treatment Diagnosis PE; Covid (+); difficulty in walking Onset Date 09/25/21 M3 PT-IP Subjective Start: 09/27/21 12:34 Freq: NEEDED Status: Active Protocol: Document 09/28/21 13:46 [facility] (Rec: 09/28/21 15:34 [facility] [id number]) Subjective Physical Therapy Visit Type Type Treatment Note Visit Start Time 13:46 Visit Stop Time 14:22 Total Visit Minutes 36 Number of PEWTER FABRICATOR Visits 1 Physical Therapy Visit Comments Patient Comments agreeable to do PT M4 PT-IP Mobility and Gait Start: 09/27/21 12:34 Freq: NEEDED Status: Active Protocol: Document 09/28/21 13:46 [facility] (Rec: 09/28/21 15:34 [facility] [id number]) PT-Bed Mobility Assessment Supine to Sit Supine to Sit Standby Assistance,Head of Bed Elevated Sit to Supine Sit to Supine Minimal Assistance Scooting Scooting to Edge of Bed Standby Assistance PT-Transfer Assessment Sit to and From Stand Sit to and from Stand Contact Guard Assistance,1 Person Assistance,Use of Upper Extremities Equipment Transfer Assistive Device Gait Belt,Front Wheeled Walker Orthotic/Prosthetic Devices or Brace: No Transfers Transfer Destination Bed Transfer Technique pt ambulated w/ FWW Transfer Ability Level of Assist Contact Guard Assistance, Minimal Assistance Comments Mobility Comments Pt in bed upon arrival from therapy on 3L O2 and at 95%. Pt SBA for sup<>sit w/ HOB elevated and scooting EOB. She then sit<>stand w/ FWW CGA and O2 93%. Pt then ambulated ~6 ft forward and backwards w/ FWW CGA and O2 stayed 93% but pt reposted wooziness and requested to get back in bed. Pt min A for LE elevation into bed and left in bed w/ all needs in reach. Gait Assessment Gait Gait Assistance Required: Contact Guard Assist Distance (Feet) 12 Able to Maintain Weight Bearing Status Yes During Gait Assistive Devices Assistive Device Gait Belt,Front Wheeled Walker Orthotic/Prosthetic Devices or Brace: No Gait Deviations General Gait Pattern Antalgic,Decreased Stride Length,Decreased Feet Clearance,Step-to Gait Factors Limiting Gait Function Factors Limiting Gait Function Decreased Activity Tolerance, Decreased Strength,Difficulty Following Directions,Limited Range of Motion,Poor Balance, Poor Safety Awareness, Respiratory Distress Comments Gait Comments Pt w/ L charcot foot and bilateral ishan braces for ambulation. Decreased stride and foot clearance and low tolerance for activity. PT-Balance Assessment Sitting Balance and Reactions Static Sitting Balance Ability Good Dynamic Sitting Balance Ability Fair Standing Balance and Reactions Static Standing Balance Ability Fair Dynamic Standing Balance Ability Poor Device Used FWW M5 PT-IP Objective Assessments Start: 09/27/21 12:34 Freq: NEEDED Status: Active Protocol: Document 09/27/21 10:50 [facility] (Rec: 09/27/21 12:51 [facility] [id number]) Orientation Orientation/Cognition Level of Alertness Alert Orientation Name Language Function Ability Hard of Hearing Safety Awareness Decreased Safety Awareness Memory Description Short Term Impaired Gross Range of Motion Lower Extremity ROM Assessment Within Functional Limits Strength Lower Extremity Strength Assessment Bilaterally Impaired Hip 3+/5 Knee 3+/5 Ankle 3/5 Sensation Assessment Sensation Gross Sensation Right LE Impaired,Left LE Impaired Sensation Description Numbness Comments Sensation Comments neuropathy per pt mid lower leg all the way to B feet Muscle Tone Muscle Tone WNL Yes M6 PT-IP Treatment Start: 09/27/21 12:34 Freq: NEEDED Status: Active Protocol: Document 09/28/21 13:46 [facility] (Rec: 09/28/21 15:34 [facility] [id number]) Physical Therapy Treatment Education Education Provided Precautions,Safety M7 PT-IP Assessment and Plan Start: 09/27/21 12:34 Freq: NEEDED Status: Active Protocol: Document 09/28/21 13:46 [facility] (Rec: 09/28/21 15:34 [facility] [id number]) PT Summary Assessment and Plan Potential Rehabilitation Potential Fair Status of Condition at Evaluation Evolving Summary Impairments Pain,ROM,Strength,Balance, Coordination,Sensation,Tone, Cognition,Bed Mobility, Transfers,Gait,Activity Tolerance Assessment Summary Pt continues to be limited in mobility, but was able to ambulate ~12 ft w/ FWW and GCA before requesting to get back into bed. Her O2 was 93% on 3LO2 during mobility. Pt will benefit from HHPT to improve functional mobility and activity tolerance. Goals Bed Mobility Goal Independent Transfer Goal Independent,Front Wheeled Walker Gait Goal Independent,Front Wheel Walker Gait Distance 100 Other Goals improve ambulation using SPC SBA 150 ft up/down 7 steps R rails SBA Days to Meet Goals 10 Frequency of Treatment Frequency Of Treatment Once a Day Treatment Plan Physical Therapy Treatment Plan Bed Mobility Training,Transfer Training,Gait Training, Therapeutic Exercise,Balance Retraining,Discharge Planning, Hot or Cold Pack,Neuromuscular Re-ed,Coordination Retraining Precautions Other Precautions Covid (+), MRSA nasal, PE Recommendations To Nursing Amount of Assist Needed 1 Person Assist Discharge Recommendations PT Discharge Recommendations Home with 18/03 Assist Available,Home Health Transportation Needs at Discharge Private Vehicle,Wheelchair/ Cabulance
--- NOTE | 2021-09-28 14:29 | P.PN_ITS ---
Subjective Subjective Interval history: Patient reports no changes in her breathing status. She reports she is still feeling comfortable. She understands that she will likely need oxygen at home, along with our plans to transition her to [facility] today. Exam Vital Signs (past 8 hours): - 09/28/21 08:45 09/28/21 08:47 09/28/21 12:00 Temperature 96.5 F L 97.9 F Pulse Rate 78 77 Respiratory Rate 24 18 Blood Pressure 143/97 H 126/96 H Pulse Oximetry 95 95 Oxygen Delivery Method Nasal Cannula Oxygen Flow Rate 3 Narrative Exam Narrative: Const Other: Patient laying in bed comfortably upon my entering the room, sleeping. Eyes Other: No scleral icterus appreciated. Neck Other: No carotid bruits appreciated. Resp Other: Lung sounds diminished bilaterally, without adventitious sounds appreicated. Cardio Other: RRR. S1 and S2 heart sounds heard, with no additional heart sounds or murmurs appreciated. No peripheral edema noted. GI Other: Soft, non-distended, non-tender. Bowel sounds present. Skin Other: No grossly abnormal skin lesions appreciated. Extrem Other: Palpable radial and dorsalis pedis pulses, bilaterally. Objective Labs Result Diagrams: 09/28/21 04:58 09/28/21 04:58 Labs: Laboratory Results - last 24 hr 09/28/21 09/28/21 09/28/21 04:58 04:58 04:58 WBC 5.6 RBC 5.58 H Hgb 15.3 Hct 47.2 H MCV 84.5 MCH 27.5 MCHC 32.5 RDW 16.2 H Plt Count 176 Neut % (Auto) 73.4 Lymph % (Auto) 16.0 L Harvey % (Auto) 10.2 Eos % (Auto) 0.0 L Baso % (Auto) 0.4 Neut # (Auto) 4100 Lymph # (Auto) 900 L Harvey # (Auto) 600 Eos # (Auto) 0 Baso # (Auto) 0 APTT 98 H* D Sodium 133 L Potassium 4.7 Chloride 99 Carbon Dioxide 34 H BUN 39 H Creatinine 1.18 H Estimated GFR 45.4 L BUN/Creatinine Ratio 33.1 H Glucose 119 H Calcium 9.0 Magnesium 1.9 Total Bilirubin 0.6 AST 24 ALT 16 Alkaline Phosphatase 55 Total Protein 6.9 Albumin 3.1 L Globulin 3.8 Albumin/Globulin Ratio 0.8 L PFSH Medical History Cardiomegaly CHF (congestive heart failure), NYHA class I Chronic back pain Depression Hypothyroidism (acquired) Pulmonary hypertension Right bundle nicki block, 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 Vent systolic function, Pulm HTN, hypothyroidism, chronic back pain, depression, unvaccinated against COVID-19 who presented to the ED with severe dyspnea, tachypnea, and 3 days of lethargy. Patient's D-dimer was 5240 on CTA patient was found to have segmental and subsegmental bilateral pulmonary emboli. Based on patient's recent echocardiogram and presentation today concerned that the patient is at high risk of developing and compensated right heart failure/right heart strain. 1. Acute hypoxic respiratory failure secondary to COVID-19 pneumonia -present and treated on admission 2. Acute hypoxic respiratory failure secondary to PE, acute, present on admission -ICU admit, tele-supervisor painting [employer] consult Dr. Plata -dexamethasone on-board -Albuterol HFA, encourage proning, incentive spirometry 3. Pulmonary emboli (segmental, subsegmental branches of left upper/lower lobe pulmonary arteries and subsegmental branches of right lower lobe pulmonary artery) -heparin drip on-board, will transition to PO Eliquis 10 mg bid for 7 days and then Eliquis 5 mg bid onward -holding diuresis as the patient may be preload dependent -holding losartan for now -BNP 37412, troponin 0.039 -echocardiogram on 09/22/2021:?EF 50-55%,?right ventricle is moderately dilated, with right ventricular systolic function is mildly to moderately reduced. The right ventricular systolic pressure is estimated to be at least 62 mmHg based on an estimated right atrial pressure of 8 mm Hg.? 3. Cognitive impairment, acute, present on admission, improving -likely secondary to developing uncompensated acute right heart failure secondary to pulmonary emboli from severe acute respiratory failure, present on admission 4. Hypothyroidism, acquired, chronic, present on admission -TSH with free T4 ordered 5. Depression, chronic, present on admission -continue sertraline 6. Chronic low back pain, chronic, present on admission -continue gabapentin and tramadol VTE prophylaxis: IV heparin on-board for new dx PE Time Spent With Patient Critical Care time: I spent a total of [] minutes of critical care time on this patient's care today; this time is exclusive of procedural time. Quality VTE Deep Vein Thrombosis/Pulmonary Embolism Present on Admission: No
[2021-09-28] MEDS: APIXABAN 5 MG TABLET 10 MG PO ×2 (15:10→20:32)
--- NOTE | 2021-09-28 16:21 | OT.IPNOTE ---
Per nursing aid pt doing well for ADL needs and able to do on her own. Pt looking to go home tomorrow, therefore discharge pt from OT services.
[2021-09-28 18:29] LABS: PTT Partial Thromboplastin Tim 24 SECONDS (26.4-36.2)
[2021-09-29 00:45] VITALS: BP 113/58; PULSE 52; RESP 18; TEMP 36.6; O2SAT 96
[2021-09-29] MEDS: LEVOTHYROXINE 100 MCG TABLET PO (05:38)
[2021-09-29 06:08] LABS: Add Manual Diff / Slide Review NO; Basophils Absolute Auto 100 /uL (0-100); Basophils Percent Auto 0.8 % (0-2); Eosinophils Absolute Auto 0 /uL (0-450); Eosinophils Percent Auto 0.3 % (2-4); Hematocrit 48.2 % (36-46); Hemoglobin 15.5 g/dL (12.0-16.0); Lymphocytes Absolute Auto 1600 /uL (1100-4500); Lymphocytes Percent Auto 25.9 % (25-40); Mean Corpuscular HGB Conc 32.2 % (30-36); Mean Corpuscular Hemoglobin 27.1 PG (26-34); Mean Corpuscular Volume 84.1 fL (80-100); Monocytes Absolute Auto 600 /uL (0-900); Monocytes Percent Auto 9.8 % (3-14); Neutrophils Absolute Auto 4000 /uL (1500-7000); Neutrophils Percent Auto 63.2 % (50-75); Platelet Count 152 X10^3/uL (150-400); Red Blood Cell Count 5.73 X10^6/uL (4.0-5.2); Red Cell Distribution Width 16.5 % (11.6-14.8); White Blood Cell Count 6.3 X10^3/uL (4.5-11.0)
[2021-09-29 06:18] LABS: PTT Partial Thromboplastin Tim 31 SECONDS (26.4-36.2)
[2021-09-29 07:17] LABS: BUN Creatinine Ratio 29.1 (6-22); Blood Urea Nitrogen 34 mg/dL (7-17); Carbon Dioxide 33 mmol/L (22-32); Chloride 100 mmol/L (98-107); Estimated Glomerular Filt Rate 45.9 mL/min (>60); Glucose 120 mg/dL (80-110); HEMOLYSIS 19 (0-50); Magnesium 1.9 mg/dL (1.6-2.3); Potassium 4.3 mmol/L (3.4-5.1); Sodium 137 mmol/L (137-145)
[2021-09-29 08:15] VITALS: PULSE 51; RESP 16; TEMP 36.1; O2SAT 94
[2021-09-29] MEDS: GABAPENTIN 600 MG TABLET PO (09:37)
[2021-09-29] MEDS: DEXAMETHASONE 10 MG/ML VIAL 6 MG IV (09:37)
[2021-09-29] MEDS: SERTRALINE 50 MG TABLET 100 MG PO (09:37)
[2021-09-29] MEDS: APIXABAN 5 MG TABLET 10 MG PO (09:37)
[2021-09-29] MEDS: SODIUM CHLORIDE 0.9% FLUSH 10 ML IV (09:38)
[2021-09-29 09:50] VITALS: O2SAT 86
[2021-09-29 10:00] VITALS: O2SAT 97
--- NOTE | 2021-09-29 13:17 | P.PN_ITS ---
Subjective Subjective Interval history: Patient reports no changes in her breathing this room. She denies any overnight events. She reports feeling overall well and wants to go home. Exam Vital Signs (past 8 hours): - 09/29/21 08:15 09/29/21 09:50 09/29/21 10:00 Temperature 96.9 F L Pulse Rate 51 L Respiratory Rate 16 Pulse Oximetry 94 86 L 97 Oxygen Delivery Method High Flow Nasal Cannula Oxygen Flow Rate 2 Narrative Exam Narrative: Const Other: Patient laying in bed comfortably upon my entering the room, sleeping. Eyes Other: No scleral icterus appreciated. Neck Other: No carotid bruits appreciated. Resp Other: Lung sounds diminished bilaterally, without adventitious sounds appreicated. Cardio Other: RRR. S1 and S2 heart sounds heard, with no additional heart sounds or murmurs appreciated. No peripheral edema noted. GI Other: Soft, non-distended, non-tender. Bowel sounds present. Skin Other: No grossly abnormal skin lesions appreciated. Extrem Other: Palpable radial and dorsalis pedis pulses, bilaterally. Objective Labs Result Diagrams: 09/29/21 06:00 09/29/21 06:50 Labs: Laboratory Results - last 24 hr 09/28/21 09/29/21 09/29/21 17:50 06:00 06:00 WBC 6.3 RBC 5.73 H Hgb 15.5 Hct 48.2 H MCV 84.1 MCH 27.1 MCHC 32.2 RDW 16.5 H Plt Count 152 Neut % (Auto) 63.2 Lymph % (Auto) 25.9 Callahan % (Auto) 9.8 Eos % (Auto) 0.3 L Baso % (Auto) 0.8 Neut # (Auto) 4000 Lymph # (Auto) 1600 Callahan # (Auto) 600 Eos # (Auto) 0 Baso # (Auto) 100 APTT 24 L D 31 D Sodium Potassium Chloride Carbon Dioxide BUN Creatinine Estimated GFR BUN/Creatinine Ratio Glucose Calcium Magnesium 09/29/21 06:50 WBC RBC Hgb Hct MCV MCH MCHC RDW Plt Count Neut % (Auto) Lymph % (Auto) Callahan % (Auto) Eos % (Auto) Baso % (Auto) Neut # (Auto) Lymph # (Auto) Callahan # (Auto) Eos # (Auto) Baso # (Auto) APTT Sodium 137 Potassium 4.3 Chloride 100 Carbon Dioxide 33 H BUN 34 H Creatinine 1.17 H Estimated GFR 45.9 L BUN/Creatinine Ratio 29.1 H Glucose 120 H Calcium 9.0 Magnesium 1.9 PFSH Medical History Cardiomegaly CHF (congestive heart failure), NYHA class I Chronic back pain Depression Hypothyroidism (acquired) Pulmonary hypertension Right bundle nicki block, 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 Vent systolic function, Pulm HTN, hypothyroidism, chronic back pain, depression, unvaccinated against COVID-19 who presented to the ED with severe dyspnea, tachypnea, and 3 days of lethargy. Patient's D-dimer was 5240 on CTA patient was found to have segmental and subsegmental bilateral pulmonary emboli. Based on patient's recent echocardiogram and presentation today, patient likely presented with right-sided heart failure. 1. Acute hypoxic respiratory failure secondary to COVID-19 pneumonia -present and treated on admission 2. Acute hypoxic respiratory failure secondary to PE, acute, present on admission -completed 48 hrs of IV heparin, and transitioned to PO Eliquis on Sep 29 -completing RT home oxygen evaluation today as pt will likely need oxygen at home 3. Pulmonary emboli (segmental, subsegmental branches of left upper/lower lobe pulmonary arteries and subsegmental branches of right lower lobe pulmonary artery) -heparin drip on-board, will transition to PO Eliquis 10 mg bid for 7 days and then Eliquis 5 mg bid onward -holding diuresis now as the patient may be preload dependent -BNP 58308, troponin 0.039 -echocardiogram on 09/22/2021:?EF 50-55%,?right ventricle is moderately dilated, with right ventricular systolic function is mildly to moderately reduced. The right ventricular systolic pressure is estimated to be at least 62 mmHg based on an estimated right atrial pressure of 8 mm Hg.? 4. Cognitive impairment, acute, present on admission, improving -likely secondary to developing uncompensated acute right heart failure se condary to pulmonary emboli from severe acute respiratory failure, present on admission 5. Hypothyroidism, acquired, chronic, present on admission -TSH with free T4 ordered 6. Depression, chronic, present on admission -continue sertraline 7. Chronic low back pain, chronic, present on admission -continue gabapentin and tramadol VTE prophylaxis: IV heparin on-board for new dx PE Time Spent With Patient Critical Care time: I spent a total of [] minutes of critical care time on this patient's care today; this time is exclusive of procedural time. Quality VTE Deep Vein Thrombosis/Pulmonary Embolism Present on Admission: No
--- NOTE | 2021-09-29 14:44 | PT-IP ANOTE ---
Attempted to see pt at 14:44, pt refused therapy.
[2021-09-29 16:06] VITALS: BP 133/80; PULSE 45; RESP 18; TEMP 36.6; O2SAT 94
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
[2021-09-29] MEDS: MAG HYDROX/ALUM/SIMETH 30 ML UDC PO (18:05)
--- NOTE | 2021-09-29 19:34 | PC.NURSE ---
Pt AOx4, VS stable. She frequently requested that no one disturb her during her stay. She slept frequently during the day. RT determined pt needed oxygen therapy at home. IV in right FA and midline in right arm were discontinued upon discharge. Pt given discharge instructions. Barba removed. Pt was discharged at 1750.
== END 2021-09-29 18:00 | disposition home or self-care (01) | DRG 177 ==
LOC: ED 15:47 → AC 09-26 08:03 → ICU 09-26 08:03 → AC 09-28 15:59
PROVIDERS: Nurse Practitioner Family; Student in an Organized Health Care Education/Training Program; Admitting Provider Internal Medicine; Emergency Provider Emergency Medicine; Family Provider Internal Medicine; PCP Physician Assistant; Referring Provider Emergency Medicine; Visit Provider Internal Medicine
DX: U07.1 COVID-19 (principal); J12.82 Pneumonia due to coronavirus disease 2019; J80 Acute respiratory distress syndrome; I26.94 Multiple subsegmental thrombotic pulmonary emboli without acute cor pulmonale; I50.23 Acute on chronic systolic (congestive) heart failure; I26.09 Other pulmonary embolism with acute cor pulmonale; I27.20 Pulmonary hypertension, unspecified; J84.10 Pulmonary fibrosis, unspecified; E03.9 Hypothyroidism, unspecified; F32.A Depression, unspecified; M54.50 Low back pain, unspecified; G89.29 Other chronic pain; Z87.891 Personal history of nicotine dependence; I77.810 Thoracic aortic ectasia; I07.1 Rheumatic tricuspid insufficiency
CPT/HCPCS: 36415; 36600; 70450; 71045; 71046; 71275; 80048; 80053; 80061; 82805; 83036; 83605; 83735; 83880; 84145; 84443; 84484; 85007; 85025; 85379; 85730; 87077; 87086; 87186; 87502; 87635; 87797; 93005; 93306; 94618; 94762; 96365; 96376; 97162; 97166; 97530; 99285; 99291; 99292; C9803; A9270; J1100; J1644; J2405; Q9967